=== PATIENT | male | born 1940 | race Two or more races ===

== ENCOUNTER 2021-08-28 17:01 | Inpatient (IN) | payer MEDICARE ==
[~2021-08-28] VITALS: Ht 172.7 cm; Wt 216.0 kg
[2021-08-28] VITALS (8 sets, daily range): BP systolic 134–166; BP diastolic 55–74
[~2021-08-28 17:01] MED LIST: AMIO200T36 PO; APIX5TAB3 PO; ATOR10TA87 PO; CLON0.2T PO; CYCL-1 PO; FURO40TA4 PO; ICOS1CAP PO; LEVO25TA7 PO; METO50TA7 PO; POTA-208 PO
[2021-08-28] MEDS ORDERED: normal saline 1000ML IV soln IV ONE (17:30)
[2021-08-28 18:32] LABS: BASOPHILS # (AUTO) 0.1 X10'3 (0-0.2); BASOPHILS % (AUTO) 1.5 % (0-1); EOSINOPHILS # (AUTO) 0.2 X10'3 (0-0.9); EOSINOPHILS % (AUTO) 3.1 % (0-6); LYMPHOCYTES # (AUTO) 1.1 X10'3 (1.1-4.8); LYMPHOCYTES % (AUTO) 16.2 % (21-51); MEAN CORPUSCULAR HEMOGLOBIN 19.9 PG (27.0-31.0); MEAN CORPUSCULAR HGB CONC 30.4 g/dL (33.0-36.5); MEAN CORPUSCULAR VOLUME 65.4 FL (78-98); MEAN PLATELET VOLUME 9.5 FL (7.4-10.4); MONOCYTES # (AUTO) 0.4 X10'3 (0-0.9); MONOCYTES % (AUTO) 6.3 % (2-12); NEUTROPHILS # (AUTO) 5.1 X10'3 (1.8-7.7); NEUTROPHILS % (AUTO) 72.9 % (42-75); PLATELET COUNT 224 X10'3 (140-440); RED BLOOD COUNT 3.04 X10'6 (4.70-6.10); RED CELL DISTRIBUTION WIDTH 19.6 % (11.5-14.5); WHITE BLOOD COUNT 6.9 X10'3 (4.5-11.0)
[2021-08-28 18:38] LABS: ALANINE AMINOTRANSFERASE 114 U/L (12-78); ALBUMIN 3.2 G/DL (3.4-5.0); ALBUMIN/GLOBULIN RATIO 0.8 (1.1-1.5); ALKALINE PHOSPHATASE 101 IU/L (46-116); ANION GAP 12 (8-16); ASPARTATE AMINO TRANSFERASE 116 U/L (10-37); BILIRUBIN,TOTAL 0.5 MG/DL (0.1-1.0); BLOOD UREA NITROGEN 48 MG/DL (7-18); BUN/CREATININE RATIO 19.9 (5.4-32.0); CALCIUM 8.3 MG/DL (8.5-10.1); CHLORIDE 104 MMOL/L (99-107); CREATININE 2.41 MG/DL (0.60-1.10); GLUCOSE 157 MG/DL (70-104); POTASSIUM 3.6 MMOL/L (3.5-5.1); SODIUM 140 MMOL/L (135-145); TOTAL PROTEIN 7.2 G/DL (6.4-8.2); eGFR 26 ML/MIN
[2021-08-28 18:41] LABS: HEMATOCRIT 19.9 % (42.0-52.0)
[2021-08-28] MEDS ORDERED: acetaminophen 325mg tablet PO PRN ×2 (20:20)
[2021-08-28] MEDS ORDERED: LORazepam 2 mg/ml vial IV PRN (20:20)
[2021-08-28] MEDS ORDERED: potassium Cl 20 mEq SR tablet PO PRN (20:20)
[2021-08-28] MEDS ORDERED: potassium Cl 40MEQ/1/2NS 520ml 520 ML IV PRN ×2 (20:20)
[2021-08-28] MEDS ORDERED: MESSAGE TO PHARMACY PO ONE (20:20)
[2021-08-28] MEDS ORDERED: glucagon, human recombinant 1mg kit SUBCUT PRN (20:20)
[2021-08-28] MEDS ORDERED: ondansetron/PF 4mg/2ml inj IV PRN (20:20)
[2021-08-28] MEDS ORDERED: dextrose ORAL solution 15 GM/59 ML bottle PO PRN ×2 (20:20)
[2021-08-28] MEDS ORDERED: magnesium 2GM in 50ml NS 50 ML IV PRN (20:20)
[2021-08-28] MEDS ORDERED: magnesium Cl slow-release 64mg tablet PO PRN (20:20)
[2021-08-28] MEDS ORDERED: LORazepam 1 MG tablet PO PRN (20:20)
[2021-08-28] MEDS ORDERED: insulin Lispro (HumaLOG) vial - multi-dose SQ SCH (20:20)
[2021-08-28] MEDS ORDERED: magnesium 4gm in 100ml NS 100 ML IV PRN (20:20)
[2021-08-28] MEDS ORDERED: dextrose 50%-water 50ml dispensing syringe IV PRN ×2 (20:20)
[2021-08-28] MEDS: normal saline 1000ml 1,000 ML IV SCH (20:20)
[2021-08-28 20:44] LABS: HEMOGLOBIN A1C 7.6 % (4.5-6.2)
[2021-08-28] MEDS ORDERED: pantoprazole 40MG/NS 100ML BAG 100 ML IV SCH (21:00)
[2021-08-28] MEDS: insulin glargine (Lantus) pen - multi-dose SQ SCH (21:00)
[2021-08-28] MEDS ORDERED: temazepam 15mg capsule PO PRN (21:00)
[2021-08-28] MEDS: pantoprazole 40 MG vial IV SCH (22:11)
--- NOTE | 2021-08-28 22:17 | NUR ---
NO AM BLOOD SUGAR YET. HELD DARIAN
[2021-08-28 22:24] LABS: % IRON SATURATION 5 % (11-46); IRON 25 UG/DL (53-167); TOTAL IRON BINDING CAPACITY 456 UG/DL (259-388)
[2021-08-28 23:04] LABS: CLARITY,URINE CLEAR (Clear); COLOR,URINE YELLOW (Yellow); GLUCOSE, URINE NEGATIVE (Neg); KETONES,URINE NEGATIVE (Neg); NITRITES, URINE NEGATIVE (Neg); OCCULT BLOOD,URINE NEGATIVE (Neg); PROTEIN,URINE NEGATIVE (Neg); UA COLLECTION TYPE URINAL
[2021-08-28 23:05] LABS: LEUKOCYTE ESTERASE ,URINE NEGATIVE (Neg)
[2021-08-28] MEDS ORDERED: ATOR20TA66 PO (23:08)
[2021-08-28] MEDS ORDERED: CHLO25TA10 PO (23:10)
[2021-08-28] MEDS ORDERED: OMEG-15 PO (23:14)
[2021-08-28] MEDS ORDERED: FURO40TA4 PO (23:16)
[2021-08-28] MEDS ORDERED: POTA10TA PO (23:19)
[2021-08-28] MEDS ORDERED: LOSA100T57 PO (23:24)
[2021-08-29] VITALS (11 sets, daily range): BP systolic 148–187; BP diastolic 56–81
[2021-08-29] MEDS ORDERED: ASPI-10 PO (00:01)
[2021-08-29] MEDS ORDERED: OMEP40CA21 PO (00:09)
[2021-08-29] MEDS ORDERED: TRAZ-251 PO (00:31)
[2021-08-29] MEDS ORDERED: INSU100I45 SQ (00:35)
[2021-08-29] MEDS ORDERED: INSU100I31 SQ (00:37)
[2021-08-29 00:57] LABS: MEAN CORPUSCULAR HEMOGLOBIN 21.9 PG (27.0-31.0); MEAN CORPUSCULAR VOLUME 70.7 FL (78-98); MEAN PLATELET VOLUME 8.9 FL (7.4-10.4); PLATELET COUNT 177 X10'3 (140-440); RED BLOOD COUNT 3.09 X10'6 (4.70-6.10); RED CELL DISTRIBUTION WIDTH 24.2 % (11.5-14.5); WHITE BLOOD COUNT 6.5 X10'3 (4.5-11.0)
[2021-08-29 01:04] LABS: HEMOGLOBIN 6.8 g/dl (14.0-17.9)
[2021-08-29 01:05] LABS: HEMATOCRIT 21.8 % (42.0-52.0)
[2021-08-29 01:17] LABS: ALANINE AMINOTRANSFERASE 92 U/L (12-78); ALBUMIN 2.5 G/DL (3.4-5.0); ALBUMIN/GLOBULIN RATIO 0.7 (1.1-1.5); ALKALINE PHOSPHATASE 81 IU/L (46-116); ANION GAP 11 (8-16); ASPARTATE AMINO TRANSFERASE 90 U/L (10-37); BILIRUBIN,TOTAL 0.8 MG/DL (0.1-1.0); BLOOD UREA NITROGEN 41 MG/DL (7-18); BUN/CREATININE RATIO 22.2 (5.4-32.0); CALCIUM 7.2 MG/DL (8.5-10.1); CHLORIDE 110 MMOL/L (99-107); CREATININE 1.85 MG/DL (0.60-1.10); GLUCOSE 69 MG/DL (70-104); MAGNESIUM 2.2 MG/DL (1.5-2.4); POTASSIUM 3.4 MMOL/L (3.5-5.1); SODIUM 143 MMOL/L (135-145); TOTAL CARBON DIOXIDE 22.4 MMOL/L (24-32); eGFR 35 ML/MIN
[2021-08-29] MEDS: normal saline 1000ml 1,000 ML IV SCH ×2 (05:20→16:20)
--- NOTE | 2021-08-29 06:42 | NUR ---
Patient in room PCU 3014. I have received report from ROSA MARIA River and had the opportunity to ask questions and assume patient care.
--- NOTE | 2021-08-29 07:29 | NUR ---
Diabetes consult: Noted A1C 7.6 which is appropriate for age, DM education not indicated at this time, will continue to monitor. Addendum: 08/29/21 at [address] Amended: Links added.
[2021-08-29] MEDS: K and/or MAG REPLACEMENT MC SCH ×2 (08:00→20:00)
[2021-08-29 09:03] LABS: HEMATOCRIT 24.2 % (42.0-52.0); HEMOGLOBIN 7.6 g/dl (14.0-17.9); MEAN CORPUSCULAR HEMOGLOBIN 22.1 PG (27.0-31.0); MEAN CORPUSCULAR HGB CONC 31.2 g/dL (33.0-36.5); MEAN CORPUSCULAR VOLUME 70.7 FL (78-98); MEAN PLATELET VOLUME 9.5 FL (7.4-10.4); PLATELET COUNT 206 X10'3 (140-440); RED BLOOD COUNT 3.42 X10'6 (4.70-6.10); RED CELL DISTRIBUTION WIDTH 23.3 % (11.5-14.5); WHITE BLOOD COUNT 7.7 X10'3 (4.5-11.0)
[2021-08-29] MEDS: pantoprazole 40 MG vial IV SCH ×2 (10:43→21:17)
[2021-08-29] MEDS: potassium Cl 20 mEq SR tablet PO PRN ×2 (10:43→21:17)
[2021-08-29] MEDS ORDERED: fentaNYL/PF 50MCG/1 ML 2ML syringe ONE (11:52)
[2021-08-29] MEDS ORDERED: MIDAZolam 1 MG/ML 5ML VIAL ONE (11:52)
[2021-08-29] MEDS ORDERED: LIDOcaine Viscous 15ml cup ONE (11:52)
[2021-08-29 17:49] LABS: HEMATOCRIT 24.7 % (42.0-52.0); HEMOGLOBIN 7.5 g/dl (14.0-17.9); MEAN CORPUSCULAR HEMOGLOBIN 21.6 PG (27.0-31.0); MEAN CORPUSCULAR HGB CONC 30.5 g/dL (33.0-36.5); MEAN CORPUSCULAR VOLUME 70.9 FL (78-98); PLATELET COUNT 209 X10'3 (140-440); RED BLOOD COUNT 3.49 X10'6 (4.70-6.10); RED CELL DISTRIBUTION WIDTH 23.7 % (11.5-14.5); WHITE BLOOD COUNT 7.7 X10'3 (4.5-11.0)
--- NOTE | 2021-08-29 18:35 | NUR ---
Problems reprioritized. Patient report given, questions answered & plan of care reviewed with ROSA MARIA Gomez. No signs of distress, all pt needs met at this time.
--- NOTE | 2021-08-29 18:40 | NUR ---
Patient in room PCU 3014. I have received report from ROSA MARIA He and had the opportunity to ask questions and assume patient care.
[2021-08-29] MEDS: insulin glargine (Lantus) pen - multi-dose SQ SCH (21:00)
[2021-08-29] MEDS: traZODone 50mg tablet PO SCH (21:16)
[2021-08-29] MEDS: cloNIDine 0.1 mg tablet PO SCH (21:21)
[2021-08-30] VITALS (9 sets, daily range): BP systolic 112–174; BP diastolic 50–94
[2021-08-30] MEDS: potassium Cl 20 mEq SR tablet PO PRN (00:56)
[2021-08-30] MEDS: normal saline 1000ml 1,000 ML IV SCH (02:34)
--- NOTE | 2021-08-30 06:03 | NUR ---
Problems reprioritized. Patient report given, questions answered & plan of care reviewed with ROSA MARIA He.
--- NOTE | 2021-08-30 06:24 | NUR ---
Patient in room PCU 3014. I have received report from ROSA MARIA Bolden and had the opportunity to ask questions and assume patient care.
[2021-08-30 06:57] LABS: HEMATOCRIT 23.3 % (42.0-52.0); HEMOGLOBIN 7.2 g/dl (14.0-17.9); MEAN CORPUSCULAR HEMOGLOBIN 21.9 PG (27.0-31.0); MEAN CORPUSCULAR HGB CONC 30.6 g/dL (33.0-36.5); MEAN CORPUSCULAR VOLUME 71.4 FL (78-98); MEAN PLATELET VOLUME 9.4 FL (7.4-10.4); PLATELET COUNT 196 X10'3 (140-440); RED BLOOD COUNT 3.27 X10'6 (4.70-6.10); RED CELL DISTRIBUTION WIDTH 23.8 % (11.5-14.5); WHITE BLOOD COUNT 7.1 X10'3 (4.5-11.0)
[2021-08-30 07:16] LABS: ALANINE AMINOTRANSFERASE 94 U/L (12-78); ALBUMIN 2.6 G/DL (3.4-5.0); ALBUMIN/GLOBULIN RATIO 0.7 (1.1-1.5); ALKALINE PHOSPHATASE 82 IU/L (46-116); ANION GAP 9 (8-16); ASPARTATE AMINO TRANSFERASE 81 U/L (10-37); BILIRUBIN,TOTAL 0.9 MG/DL (0.1-1.0); BLOOD UREA NITROGEN 28 MG/DL (7-18); CALCIUM 7.9 MG/DL (8.5-10.1); CHLORIDE 110 MMOL/L (99-107); CREATININE 1.65 MG/DL (0.60-1.10); GLUCOSE 182 MG/DL (70-104); MAGNESIUM 2.4 MG/DL (1.5-2.4); SODIUM 142 MMOL/L (135-145); TOTAL CARBON DIOXIDE 23.1 MMOL/L (24-32); TOTAL PROTEIN 6.2 G/DL (6.4-8.2); eGFR 40 ML/MIN
[2021-08-30] MEDS: K and/or MAG REPLACEMENT MC SCH ×2 (08:00→20:00)
[2021-08-30] MEDS: chlorthalidone 25mg tablet PO SCH (08:01)
[2021-08-30] MEDS: amiodarone 200mg tablet PO SCH (08:01)
[2021-08-30] MEDS: levoTHYROXINE 25mcg tablet PO SCH (08:01)
[2021-08-30] MEDS: atorvastatin 20mg tablet PO SCH (08:01)
[2021-08-30] MEDS: cloNIDine 0.1 mg tablet PO SCH ×3 (08:01→21:27)
[2021-08-30] MEDS: losartan 50mg tablet PO SCH (08:02)
[2021-08-30] MEDS: OMEGA-3/DHA/EPA/FISH OIL 1 EACH CAPSULE.DR PO SCH (08:02)
[2021-08-30] MEDS: pantoprazole 40 MG vial IV SCH ×2 (08:02→19:33)
--- NOTE | 2021-08-30 09:11 | NUR ---
Paged Dr Lacy PAGER ID: [phone] MESSAGE: Re Diego Rosario [phone] Can I order pt throat lozenges please? Thank you Ying [phone]
[2021-08-30] MEDS ORDERED: sodium bicarbonate (8.4%) inj. 150 MEQ in sodium chloride 0.45% 850 ML IV SCH (10:15)
[2021-08-30] MEDS: benzocaine/menthol oral lozeng 1 EACH BOX MM PRN ×4 (10:57→19:34)
[2021-08-30] MEDS: sodium bicarbonate (8.4%) inj. 150 MEQ in sodium chloride 0.45% 1,000 ML IV SCH ×2 (11:01→21:43)
[2021-08-30] MEDS: acetylcysteine 200 MG/ml 4ml vial PO SCH ×2 (11:02→19:34)
--- NOTE | 2021-08-30 12:19 | NUR ---
Paged Edilia Mayers NP, Paul [phone] Did Dr Waller want pt to eat lunch then be NPO, or NPO now? Thanks [phone]
[2021-08-30] MEDS ORDERED: ondansetron 4mg rapidly disintigrating tab PO PRN (15:55)
[2021-08-30 16:40] LABS: HEMOGLOBIN 8.3 g/dl (14.0-17.9); MEAN CORPUSCULAR HEMOGLOBIN 22.6 PG (27.0-31.0); MEAN CORPUSCULAR HGB CONC 30.6 g/dL (33.0-36.5); MEAN PLATELET VOLUME 9.5 FL (7.4-10.4); PLATELET COUNT 201 X10'3 (140-440); RED BLOOD COUNT 3.65 X10'6 (4.70-6.10); RED CELL DISTRIBUTION WIDTH 25.3 % (11.5-14.5); WHITE BLOOD COUNT 7.8 X10'3 (4.5-11.0)
--- NOTE | 2021-08-30 18:31 | NUR ---
Problems reprioritized. Patient report given, questions answered & plan of care reviewed with ROSA MARIA Tolentino. Pt sitting up on edge of bed, no signs of distress noted at change of shift. All pt needs met at this time. Informed NOC RN pt will go to pharmacy laboratory technician at 0630 on 08/31/21, needs an 18G to the R AC, and will be NPO at midnight.
[2021-08-30] MEDS: traZODone 50mg tablet PO SCH (21:22)
[2021-08-30] MEDS: insulin glargine (Lantus) pen - multi-dose SQ SCH (21:37)
[2021-08-31] VITALS (9 sets, daily range): BP systolic 135–171; BP diastolic 63–80
[2021-08-31] MEDS: benzocaine/menthol oral lozeng 1 EACH BOX MM PRN ×2 (03:04→08:39)
[2021-08-31] MEDS ORDERED: midazolam 1 mg/ML 2ml injection ONE (06:04)
[2021-08-31] MEDS ORDERED: fentaNYL/PF 50MCG/1 ML 2ML syringe ONE (06:04)
[2021-08-31] MEDS ORDERED: LIDOcaine 1% (10mg/ml)w/preservative injection 20ml MDV ONE (06:04)
[2021-08-31] MEDS ORDERED: heparin 1,000unit/ml 10ml vial 10 ML ONE (06:04)
[2021-08-31] MEDS ORDERED: nitroGLYCERIN-Tridil 50MG/D5W 250 ML IV ONE (06:04)
[2021-08-31] MEDS ORDERED: verapamil 2.5 mg/ml inj IV ONE (06:04)
[2021-08-31] MEDS ORDERED: iohexol 350MG/ML 100ml bottle IV ONE (06:05)
[2021-08-31] MEDS ORDERED: iohexol 350 MG/ML 50ML vial IV ONE (06:05)
--- NOTE | 2021-08-31 06:15 | NUR ---
Problems reprioritized. Patient report given, questions answered & plan of care reviewed with Ady CRANE. Addendum: 08/31/21 at 0615 by Randa Paul RN Amended: Links added.
[2021-08-31] MEDS ORDERED: furosemide 40mg tablet PO SCH (08:00)
[2021-08-31] MEDS: K and/or MAG REPLACEMENT MC SCH (08:00)
[2021-08-31] MEDS: levoTHYROXINE 25mcg tablet PO SCH (08:24)
[2021-08-31] MEDS: losartan 50mg tablet PO SCH (08:24)
[2021-08-31] MEDS: OMEGA-3/DHA/EPA/FISH OIL 1 EACH CAPSULE.DR PO SCH (08:25)
[2021-08-31] MEDS: cloNIDine 0.1 mg tablet PO SCH ×2 (08:26→13:31)
[2021-08-31] MEDS: atorvastatin 20mg tablet PO SCH (08:26)
[2021-08-31] MEDS: amiodarone 200mg tablet PO SCH (08:26)
[2021-08-31] MEDS: chlorthalidone 25mg tablet PO SCH (08:26)
[2021-08-31] MEDS: acetylcysteine 200 MG/ml 4ml vial PO SCH (08:28)
[2021-08-31] MEDS: pantoprazole 40 MG vial IV SCH (08:29)
[2021-08-31 10:44] LABS: ISTAT HGB ART 8.5 g/dl (14.0-18.0); ISTAT Hct ART 25 %PCV (42-52); ISTAT O2 SATURATION ARTERIAL 94 % (95-98); ISTAT SOURCE ART
[2021-08-31 11:19] LABS: HEMATOCRIT 24.9 % (42.0-52.0); HEMOGLOBIN 7.9 g/dl (14.0-17.9); MEAN CORPUSCULAR HEMOGLOBIN 22.9 PG (27.0-31.0); MEAN CORPUSCULAR HGB CONC 31.6 g/dL (33.0-36.5); MEAN CORPUSCULAR VOLUME 72.7 FL (78-98); MEAN PLATELET VOLUME 9.1 FL (7.4-10.4); PLATELET COUNT 184 X10'3 (140-440); RED BLOOD COUNT 3.43 X10'6 (4.70-6.10); RED CELL DISTRIBUTION WIDTH 25.5 % (11.5-14.5); WHITE BLOOD COUNT 7.1 X10'3 (4.5-11.0)
[2021-08-31 11:41] LABS: ALANINE AMINOTRANSFERASE 71 U/L (12-78); ALBUMIN 2.6 G/DL (3.4-5.0); ALBUMIN/GLOBULIN RATIO 0.7 (1.1-1.5); ALKALINE PHOSPHATASE 84 IU/L (46-116); ANION GAP 7 (8-16); ASPARTATE AMINO TRANSFERASE 44 U/L (10-37); BLOOD UREA NITROGEN 25 MG/DL (7-18); CALCIUM 7.9 MG/DL (8.5-10.1); CHLORIDE 106 MMOL/L (99-107); CREATININE 1.56 MG/DL (0.60-1.10); GLUCOSE 142 MG/DL (70-104); MAGNESIUM 2.1 MG/DL (1.5-2.4); POTASSIUM 3.6 MMOL/L (3.5-5.1); SODIUM 142 MMOL/L (135-145); TOTAL CARBON DIOXIDE 28.7 MMOL/L (24-32); TOTAL PROTEIN 6.2 G/DL (6.4-8.2); eGFR 43 ML/MIN
[2021-08-31] MEDS ORDERED: IRON150C5 PO (13:02)
--- NOTE | 2021-08-31 15:10 | NUR ---
PT IS STABLE FOR DISCHARGE PER MD ORDERS. ALL DISCHARGE INSTRUCTIONS REVIEWED WITH PATIENT AND ALL QUESTIONS ANSWERED. PT WILL MAKE OWN FOLLOW UP APPOINTMENT WITH PCP. NEW RX E-SCRIPTED TO PHARMACY. PIV DISCONTINUED, CANNULA INTACT. FAIRING MAN DISCONTINUED. ALL BELONGINGS GATHERED AND SENT WITH PATIENT. PT WAS WHEELED TO FRONT OF LOBBY WHERE PRIVATE VEHICLE WAS WAITING.
[2021-09-03 06:46] LABS: ISTAT Hct MIX 27 %PCV (42-52); ISTAT O2 SATURATION MIX VENOUS 56 % (60-80); ISTAT SOURCE VEN
== END 2021-08-31 15:32 | disposition home or self-care (01) | DRG 812 ==
LOC: ER 17:02 → ED HOLD 20:28 → PCU 3S 08-29 01:35
PROVIDERS: ADMIT Internal Medicine; ATTEND Family Medicine
PROC: 30233N1 Transfusion of Nonautologous Red Blood Cells into Peripheral Vein, Percutaneous Approach (ICD-10-PCS; principal; 2021-08-28)
PROC: 0DJ08ZZ Inspection of Upper Intestinal Tract, Via Natural or Artificial Opening Endoscopic (ICD-10-PCS; 2021-08-29)
PROC: 4A023N8 Measurement of Cardiac Sampling and Pressure, Bilateral, Percutaneous Approach (ICD-10-PCS; 2021-08-31)
PROC: B2111ZZ Fluoroscopy of Multiple Coronary Arteries using Low Osmolar Contrast (ICD-10-PCS; 2021-08-31)
PROC: B2151ZZ Fluoroscopy of Left Heart using Low Osmolar Contrast (ICD-10-PCS; 2021-08-31)
DX: D50.9 Iron deficiency anemia, unspecified (principal); I13.0 Hypertensive heart and chronic kidney disease with heart failure and stage 1 through stage 4 chronic kidney disease, or unspecified chronic kidney disease; N18.4 Chronic kidney disease, stage 4 (severe); I48.20 Chronic atrial fibrillation, unspecified; Z68.45 Body mass index [BMI] 70 or greater, adult; I50.32 Chronic diastolic (congestive) heart failure; N17.9 Acute kidney failure, unspecified; E11.22 Type 2 diabetes mellitus with diabetic chronic kidney disease; E03.9 Hypothyroidism, unspecified; E66.9 Obesity, unspecified; E78.5 Hyperlipidemia, unspecified; Z77.090 Contact with and (suspected) exposure to asbestos; F41.9 Anxiety disorder, unspecified; R74.01 Elevation of levels of liver transaminase levels; G47.33 Obstructive sleep apnea (adult) (pediatric); G89.29 Other chronic pain; M54.9 Dorsalgia, unspecified; I25.10 Atherosclerotic heart disease of native coronary artery without angina pectoris; I27.20 Pulmonary hypertension, unspecified; K29.80 Duodenitis without bleeding; Z79.4 Long term (current) use of insulin; Z79.82 Long term (current) use of aspirin; Z79.899 Other long term (current) drug therapy; Z90.49 Acquired absence of other specified parts of digestive tract; Z79.01 Long term (current) use of anticoagulants; Z72.89 Other problems related to lifestyle
CPT/HCPCS: 36415; 36430; 43235; 71045; 76937; 80048; 80053; 81003; 82803; 82948; 83036; 83520; 83540; 83550; 83735; 84443; 85008; 85014; 85025; 85027; 85610; 85730; 86885; 86900; 86901; 86920; 87081; 93005; 93460; 97110; 97161; 97530; 99152; 99153; 99285; A4620; A6258; C1751; C1769; C1894; C9113; G0378; J1644; J1815; J1940; J2001; J2250; J3010; J3490; J7030; J7040; P9016; Q9967

== ENCOUNTER 2023-05-23 07:01 | Outpatient (CLI) | payer MEDICARE ==
[~2023-05-23] VITALS: Ht 167.6 cm; Wt 99.8 kg
[~2023-05-23 07:01] MED LIST changes: -APIX5TAB3 PO; +ASPI-10 PO; -ATOR10TA87 PO; +ATOR20TA66 PO; +CHLO25TA10 PO; -CYCL-1 PO; -ICOS1CAP PO; +INSU100I31 SQ; +IRON150C5 PO; +LOSA100T58 PO; -METO50TA7 PO; +OMEG-15 PO; +OMEP40CA21 PO; -POTA-208 PO; +POTA-218 PO; +TRAZ-251 PO
[2023-05-23] MEDS ORDERED: albuterol 2.5 MG/3 ML nebule NEB ONE (07:50)
== END 2023-05-23 23:59 | disposition home or self-care (01) ==
LOC: RT 07:01
PROVIDERS: ATTEND Internal Medicine Cardiovascular Disease
DX: R94.2 Abnormal results of pulmonary function studies (principal); Z79.899 Other long term (current) drug therapy
CPT/HCPCS: 85018; 94010; 94727; 94729

== ENCOUNTER 2023-05-26 21:22 | Emergency (ER) | payer MEDICARE ==
[~2023-05-26] VITALS: Ht 172.7 cm; Wt 100.0 kg
[2023-05-26 22:34] VITALS: TEMP 98.1
[2023-05-27] MEDS ORDERED: TETanus/Pertussis (Acell)/Diphther VAC/PF (Tdap-Adult) 0.5ml syringe IMVAC ONE (00:05)
[2023-05-27] MEDS ORDERED: bacitracin 15gm ointment TP ONE (00:05)
[2023-05-27] MEDS ORDERED: LIDOCAINE 2%/EPI 1:100,000 inj. Multi-dose 20 ML VIAL IJ ONE (00:10)
[2023-05-27] MEDS ORDERED: cephalexin 250mg capsule PO ONE (01:00)
[2023-05-27] MEDS ORDERED: CEPH250T PO (01:01)
[2023-05-27] MEDS ORDERED: cloNIDine 0.1 mg tablet PO ONE ×2 (01:25→01:30)
[2023-05-27] MEDS ORDERED: cloNIDine 0.1 mg tablet PO SCH (01:30)
[2023-05-27 01:45] VITALS: BP 221/99; PULSE 79; RESP 15; O2SAT 96
== END 2023-05-27 02:21 | disposition home or self-care (01) ==
LOC: ER 21:23
DX: S63.257A Unspecified dislocation of left little finger, initial encounter (principal); S01.112A Laceration without foreign body of left eyelid and periocular area, initial encounter; I11.0 Hypertensive heart disease with heart failure; F41.9 Anxiety disorder, unspecified; E11.9 Type 2 diabetes mellitus without complications; Z90.49 Acquired absence of other specified parts of digestive tract; Z98.890 Other specified postprocedural states; W19.XXXA Unspecified fall, initial encounter; Y93.89 Activity, other specified; Y92.89 Other specified places as the place of occurrence of the external cause; Y99.8 Other external cause status
CPT/HCPCS: 12013; 26770; 70450; 73130; 90471; 90715; 99285; A6449

== ENCOUNTER 2023-11-29 02:32 | Emergency (ER) | payer MEDICARE ==
[~2023-11-29] VITALS: Ht 182.9 cm; Wt 110.0 kg
[2023-11-29 03:41] LABS: BASOPHILS % (AUTO) 0.4 % (0-1); EOSINOPHILS # (AUTO) 0.1 X10'3 (0-0.9); EOSINOPHILS % (AUTO) 0.7 % (0-6); HEMATOCRIT 37.7 % (42.0-52.0); HEMOGLOBIN 12.6 g/dl (14.0-17.9); LYMPHOCYTES # (AUTO) 0.7 X10'3 (1.1-4.8); LYMPHOCYTES % (AUTO) 7.3 % (21-51); MEAN CORPUSCULAR HEMOGLOBIN 30.2 PG (27.0-31.0); MEAN CORPUSCULAR HGB CONC 33.4 g/dL (33.0-36.5); MEAN CORPUSCULAR VOLUME 90.3 FL (78-98); MEAN PLATELET VOLUME 9.7 FL (7.4-10.4); MONOCYTES # (AUTO) 0.6 X10'3 (0-0.9); MONOCYTES % (AUTO) 6.4 % (2-12); NEUTROPHILS # (AUTO) 8.2 X10'3 (1.8-7.7); NEUTROPHILS % (AUTO) 85.2 % (42-75); PLATELET COUNT 170 X10'3 (140-440); RED BLOOD COUNT 4.18 X10'6 (4.70-6.10); RED CELL DISTRIBUTION WIDTH 14.6 % (11.5-14.5); WHITE BLOOD COUNT 9.7 X10'3 (4.5-11.0)
[2023-11-29] MEDS: normal saline 1000ML IV soln IVB ONE (03:48)
[2023-11-29 03:58] LABS: ALBUMIN 3.1 G/DL (3.4-5.0); ANION GAP 12 (8-16); BLOOD UREA NITROGEN 30 MG/DL (7-18); BUN/CREATININE RATIO 14.4 (10.0-20.0); CALCIUM 8.6 MG/DL (8.5-10.1); CHLORIDE 104 MMOL/L (99-107); CREATININE 2.09 MG/DL (0.60-1.10); GLUCOSE 101 MG/DL (70-104); POTASSIUM 4.3 MMOL/L (3.5-5.1); SODIUM 140 MMOL/L (135-145); TOTAL CARBON DIOXIDE 24.5 MMOL/L (24-32); eCRCL 29 ML/MIN; eGFR 30 ML/MIN
[2023-11-29 07:58] VITALS: BP 150/67; PULSE 63; RESP 18; TEMP 98.6; O2SAT 99
== END 2023-11-29 08:02 | disposition home or self-care (01) ==
LOC: ER 02:33
DX: E11.649 Type 2 diabetes mellitus with hypoglycemia without coma (principal); I50.9 Heart failure, unspecified; I11.0 Hypertensive heart disease with heart failure; Z79.899 Other long term (current) drug therapy; Z79.82 Long term (current) use of aspirin; Z79.84 Long term (current) use of oral hypoglycemic drugs; Z90.49 Acquired absence of other specified parts of digestive tract
CPT/HCPCS: 36415; 70450; 71045; 80048; 82948; 84484; 85025; 93005; 96360; 99285; A6222; J7030; A6449

== ENCOUNTER 2024-02-08 17:10 | Inpatient (IN) | payer MEDICARE ==
[~2024-02-08] VITALS: Ht 175.3 cm; Wt 106.0 kg
[2024-02-08 19:04] LABS: BASOPHILS % (AUTO) 0.4 % (0-1); EOSINOPHILS # (AUTO) 0.1 X10'3 (0-0.9); EOSINOPHILS % (AUTO) 0.7 % (0-6); HEMATOCRIT 38.5 % (42.0-52.0); HEMOGLOBIN 12.8 g/dl (14.0-17.9); LYMPHOCYTES # (AUTO) 1.3 X10'3 (1.1-4.8); MEAN CORPUSCULAR HEMOGLOBIN 29.5 PG (27.0-31.0); MEAN CORPUSCULAR HGB CONC 33.3 g/dL (33.0-36.5); MEAN CORPUSCULAR VOLUME 88.6 FL (78-98); MEAN PLATELET VOLUME 10.5 FL (7.4-10.4); MONOCYTES # (AUTO) 0.7 X10'3 (0-0.9); MONOCYTES % (AUTO) 8.4 % (2-12); NEUTROPHILS % (AUTO) 74.5 % (42-75); PLATELET COUNT 239 X10'3 (140-440); RED BLOOD COUNT 4.35 X10'6 (4.70-6.10); RED CELL DISTRIBUTION WIDTH 15.4 % (11.5-14.5); WHITE BLOOD COUNT 8.1 X10'3 (4.5-11.0)
[2024-02-08] MEDS: hydrALAZINE 20mg/ml inj. IV ONE (19:24)
[2024-02-08 19:42] LABS: ALANINE AMINOTRANSFERASE 32 U/L (12-78); ALBUMIN 2.6 G/DL (3.4-5.0); ALBUMIN/GLOBULIN RATIO 0.6 (1.1-1.5); ALKALINE PHOSPHATASE 101 IU/L (46-116); ANION GAP 9 (8-16); ASPARTATE AMINO TRANSFERASE 29 U/L (10-37); BILIRUBIN,TOTAL 0.3 MG/DL (0.1-1.0); BLOOD UREA NITROGEN 62 MG/DL (7-18); CALCIUM 9.1 MG/DL (8.5-10.1); CHLORIDE 105 MMOL/L (99-107); GLUCOSE 144 MG/DL (70-104); POTASSIUM 5.5 MMOL/L (3.5-5.1); SODIUM 137 MMOL/L (135-145); eCRCL 20 ML/MIN; eGFR 23 ML/MIN
[2024-02-08 19:51] LABS: MAGNESIUM 2.4 MG/DL (1.5-2.4); PRO BRAIN NATRIURETIC PEPTIDE 2147 PG/ML (0-450)
[2024-02-08] MEDS: furosemide 10 MG/1 ML 10ml inj IV ONE (19:52)
[2024-02-08] MEDS ORDERED: mag hydrox/Alum hydrox/simeth 30ml oral suspension PO PRN (20:50)
[2024-02-08] MEDS ORDERED: magnesium hydroxide 30ml (MOM) UD suspension PO PRN (20:50)
[2024-02-08] MEDS ORDERED: magnesium 2GM in 50ml NS 50 ML IV PRN (20:50)
[2024-02-08] MEDS ORDERED: magnesium Cl slow-release 64mg tablet PO PRN (20:50)
[2024-02-08] MEDS ORDERED: DEXTROSE 15 GM of carb/4 tabs (each vial/BOTTLE has 4 tablets) PO PRN ×2 (20:50)
[2024-02-08] MEDS ORDERED: potassium Cl 40MEQ/1/2NS 520ml 520 ML IV PRN (20:50)
[2024-02-08] MEDS ORDERED: ondansetron/PF 4mg/2ml inj IV PRN (20:50)
[2024-02-08] MEDS ORDERED: glucagon, human recombinant 1mg kit SUBCUT PRN (20:50)
[2024-02-08] MEDS ORDERED: dextrose 50%-water 50ml dispensing syringe IV PRN ×2 (20:50)
[2024-02-08] MEDS ORDERED: acetaminophen 325mg tablet PO PRN (20:50)
[2024-02-08] MEDS ORDERED: magnesium 4gm in 100ml NS 100 ML IV PRN (20:50)
[2024-02-08] MEDS ORDERED: potassium Cl 20 mEq SR tablet PO PRN ×2 (20:50)
[2024-02-08] MEDS: insulin glargine (Lantus) pen - multi-dose SQ SCH (21:00)
[2024-02-08 22:30] VITALS: BP 177/76; PULSE 86; RESP 22; TEMP 96.8; O2SAT 95
[2024-02-08] MEDS ORDERED: ipratropium/albuterol 3ml nebule NEB PRN (22:30)
[2024-02-08] MEDS: LidoCAINE 2% Topical Jelly 11mL syringe (UROJET) TOP ONE (22:54)
[2024-02-08] MEDS: insulin glargine (Lantus) pen - multi-dose SQ ONE (22:54)
[2024-02-08 23:04] VITALS: PULSE 71; RESP 28; O2SAT 94
[2024-02-08] MEDS ORDERED: FURO40TA4 PO ×2 (23:16)
[2024-02-08] MEDS ORDERED: APIX5TAB3 PO (23:16)
[2024-02-08] MEDS ORDERED: CARSR60C PO (23:16)
[2024-02-08] MEDS ORDERED: MULT-1074 PO (23:16)
[2024-02-09] VITALS (16 sets, daily range): BP systolic 143–174; BP diastolic 76–90; PULSE 65–98; RESP 16–25; TEMP 95.3–98.1; O2SAT 89–98
[2024-02-09] MEDS: HYDROmorphone inj. 0.5 MG/0.5 ML DISP.SYRIN IV PRN (00:52)
[2024-02-09 06:47] LABS: ALANINE AMINOTRANSFERASE 27 U/L (12-78); ALBUMIN 2.4 G/DL (3.4-5.0); ALBUMIN/GLOBULIN RATIO 0.5 (1.1-1.5); ALKALINE PHOSPHATASE 91 IU/L (46-116); ANION GAP 11 (8-16); ASPARTATE AMINO TRANSFERASE 25 U/L (10-37); BILIRUBIN,TOTAL 0.3 MG/DL (0.1-1.0); BLOOD UREA NITROGEN 58 MG/DL (7-18); BUN/CREATININE RATIO 22.2 (10.0-20.0); CALCIUM 8.9 MG/DL (8.5-10.1); CHLORIDE 106 MMOL/L (99-107); CREATININE 2.61 MG/DL (0.60-1.10); GLUCOSE 113 MG/DL (70-104); MAGNESIUM 2.3 MG/DL (1.5-2.4); PHOSPHORUS 3.8 MG/DL (2.3-4.5); POTASSIUM 4.5 MMOL/L (3.5-5.1); SODIUM 139 MMOL/L (135-145); TOTAL PROTEIN 6.8 G/DL (6.4-8.2); eCRCL 21 ML/MIN; eGFR 24 ML/MIN
[2024-02-09 06:55] LABS: D-DIMER 2.34 MG/L FEU (0-0.50)
[2024-02-09 06:57] LABS: BASOPHILS % (AUTO) 0.4 % (0-1); EOSINOPHILS % (AUTO) 0.3 % (0-6); HEMATOCRIT 37.4 % (42.0-52.0); HEMOGLOBIN 12.4 g/dl (14.0-17.9); LYMPHOCYTES % (AUTO) 14.7 % (21-51); MEAN CORPUSCULAR HGB CONC 33.1 g/dL (33.0-36.5); MEAN CORPUSCULAR VOLUME 87.6 FL (78-98); MEAN PLATELET VOLUME 10.3 FL (7.4-10.4); MONOCYTES # (AUTO) 0.7 X10'3 (0-0.9); MONOCYTES % (AUTO) 10.5 % (2-12); NEUTROPHILS # (AUTO) 4.9 X10'3 (1.8-7.7); NEUTROPHILS % (AUTO) 74.1 % (42-75); PLATELET COUNT 216 X10'3 (140-440); RED BLOOD COUNT 4.27 X10'6 (4.70-6.10); RED CELL DISTRIBUTION WIDTH 15.3 % (11.5-14.5); WHITE BLOOD COUNT 6.6 X10'3 (4.5-11.0)
[2024-02-09] MEDS: LIDOcaine 5% patch TP SCH (08:00)
[2024-02-09] MEDS: K and/or MAG REPLACEMENT MC SCH (08:00)
[2024-02-09] MEDS ORDERED: furosemide 10 MG/1 ML 10ml inj IV SCH (08:00)
[2024-02-09] MEDS: atorvastatin 20mg tablet PO SCH (09:42)
[2024-02-09] MEDS: apixaban 2.5mg tablet PO SCH (09:42)
[2024-02-09] MEDS: losartan 50mg tablet PO SCH (09:43)
[2024-02-09] MEDS: docusate sod 100mg capsule PO SCH (09:44)
[2024-02-09] MEDS: pantoprazole 40mg Tablet.DR PO SCH (09:44)
[2024-02-09] MEDS: cloNIDine 0.1 mg tablet PO SCH (09:44)
[2024-02-09] MEDS: amiodarone 200mg tablet PO SCH (09:44)
[2024-02-09] MEDS: furosemide 10 MG/1 ML 10ml inj IV SCH (09:45)
[2024-02-09] MEDS: furosemide 20 MG/2 ML vial IV ONE (09:45)
[2024-02-09] MEDS: levoTHYROXINE 75mcg tablet PO SCH (09:45)
[2024-02-09] MEDS: NIFEdipine XL 30mg tablet PO SCH (09:47)
[2024-02-09] MEDS: ipratropium/albuterol 3ml nebule NEB SCH (13:34)
[2024-02-09] MEDS: methylPREDNISolone sod succ 125mg/2ml vial IV ONE (14:05)
[2024-02-09] MEDS: furosemide 40mg/4ml inj IV SCH (14:05)
[2024-02-09] MEDS ORDERED: ondansetron 4mg rapidly disintigrating tab PO PRN (15:55)
[2024-02-09] MEDS: traZODone 50mg tablet PO SCH (20:37)
[2024-02-09] MEDS: methylPREDNISolone sod succ 125mg/2ml vial IV SCH (20:43)
[2024-02-10] VITALS (33 sets, daily range): BP systolic 96–174; BP diastolic 52–83; PULSE 65–120; RESP 13–25; TEMP 97–98.4; O2SAT 90–100
[2024-02-10 06:41] LABS: BASOPHILS % (AUTO) 0.1 % (0-1); EOSINOPHILS % (AUTO) 0 % (0-6); HEMATOCRIT 37.4 % (42.0-52.0); HEMOGLOBIN 12.3 g/dl (14.0-17.9); LYMPHOCYTES # (AUTO) 0.3 X10'3 (1.1-4.8); LYMPHOCYTES % (AUTO) 6.8 % (21-51); MEAN CORPUSCULAR HEMOGLOBIN 28.9 PG (27.0-31.0); MEAN CORPUSCULAR HGB CONC 32.9 g/dL (33.0-36.5); MEAN CORPUSCULAR VOLUME 87.8 FL (78-98); MONOCYTES # (AUTO) 0.1 X10'3 (0-0.9); MONOCYTES % (AUTO) 1.6 % (2-12); NEUTROPHILS # (AUTO) 4.4 X10'3 (1.8-7.7); NEUTROPHILS % (AUTO) 91.5 % (42-75); PLATELET COUNT 202 X10'3 (140-440); RED BLOOD COUNT 4.26 X10'6 (4.70-6.10); RED CELL DISTRIBUTION WIDTH 14.8 % (11.5-14.5); WHITE BLOOD COUNT 4.9 X10'3 (4.5-11.0)
[2024-02-10 07:07] LABS: ALANINE AMINOTRANSFERASE 24 U/L (12-78); ALBUMIN 2.1 G/DL (3.4-5.0); ALBUMIN/GLOBULIN RATIO 0.5 (1.1-1.5); ALKALINE PHOSPHATASE 81 IU/L (46-116); ANION GAP 13 (8-16); ASPARTATE AMINO TRANSFERASE 19 U/L (10-37); BILIRUBIN,TOTAL 0.3 MG/DL (0.1-1.0); BLOOD UREA NITROGEN 57 MG/DL (7-18); BUN/CREATININE RATIO 21.6 (10.0-20.0); CALCIUM 8.3 MG/DL (8.5-10.1); CHLORIDE 105 MMOL/L (99-107); CREATININE 2.64 MG/DL (0.60-1.10); GLUCOSE 173 MG/DL (70-104); MAGNESIUM 2.1 MG/DL (1.5-2.4); PHOSPHORUS 4.5 MG/DL (2.3-4.5); POTASSIUM 4.1 MMOL/L (3.5-5.1); PRO BRAIN NATRIURETIC PEPTIDE 3758 PG/ML (0-450); SODIUM 140 MMOL/L (135-145); TOTAL CARBON DIOXIDE 22.4 MMOL/L (24-32); TOTAL PROTEIN 6.3 G/DL (6.4-8.2); eCRCL 21 ML/MIN; eGFR 23 ML/MIN
[2024-02-10] MEDS: carvedilol 6.25mg tablet PO SCH (09:45)
[2024-02-10] MEDS: amiodarone 150mg/dext, iso-os 100 ML IV ONE ×2 (16:01→16:06)
[2024-02-10] MEDS: morphine 10mg/ml inj. IV ONE (16:03)
[2024-02-10] MEDS: MIDAZolam 1mg/ml 10ml vial IV ONE (16:05)
[2024-02-10] MEDS: furosemide 40mg/4ml inj IV SCH (19:40)
[2024-02-11] VITALS (14 sets, daily range): BP systolic 109–149; BP diastolic 62–73; PULSE 61–76; RESP 13–24; TEMP 97–97.8; O2SAT 90–97
[2024-02-11 07:52] LABS: BASOPHILS % (AUTO) 0 % (0-1); EOSINOPHILS % (AUTO) 0 % (0-6); HEMATOCRIT 36.2 % (42.0-52.0); HEMOGLOBIN 11.7 g/dl (14.0-17.9); LYMPHOCYTES # (AUTO) 0.4 X10'3 (1.1-4.8); LYMPHOCYTES % (AUTO) 4.4 % (21-51); MEAN CORPUSCULAR HEMOGLOBIN 28.9 PG (27.0-31.0); MEAN CORPUSCULAR HGB CONC 32.3 g/dL (33.0-36.5); MEAN CORPUSCULAR VOLUME 89.6 FL (78-98); MEAN PLATELET VOLUME 9.6 FL (7.4-10.4); MONOCYTES # (AUTO) 0.4 X10'3 (0-0.9); MONOCYTES % (AUTO) 4.3 % (2-12); NEUTROPHILS # (AUTO) 7.8 X10'3 (1.8-7.7); NEUTROPHILS % (AUTO) 91.3 % (42-75); PLATELET COUNT 187 X10'3 (140-440); RED BLOOD COUNT 4.04 X10'6 (4.70-6.10); RED CELL DISTRIBUTION WIDTH 15.6 % (11.5-14.5); WHITE BLOOD COUNT 8.5 X10'3 (4.5-11.0)
[2024-02-11 08:50] LABS: ALANINE AMINOTRANSFERASE 19 U/L (12-78); ALBUMIN 2.1 G/DL (3.4-5.0); ALBUMIN/GLOBULIN RATIO 0.5 (1.1-1.5); ALKALINE PHOSPHATASE 73 IU/L (46-116); ANION GAP 8 (8-16); ASPARTATE AMINO TRANSFERASE 15 U/L (10-37); BILIRUBIN,TOTAL 0.4 MG/DL (0.1-1.0); BLOOD UREA NITROGEN 71 MG/DL (7-18); CALCIUM 7.9 MG/DL (8.5-10.1); CHLORIDE 106 MMOL/L (99-107); CREATININE 2.73 MG/DL (0.60-1.10); GLUCOSE 205 MG/DL (70-104); MAGNESIUM 2.4 MG/DL (1.5-2.4); PHOSPHORUS 4.2 MG/DL (2.3-4.5); POTASSIUM 4.4 MMOL/L (3.5-5.1); PRO BRAIN NATRIURETIC PEPTIDE 4981 PG/ML (0-450); SODIUM 139 MMOL/L (135-145); TOTAL CARBON DIOXIDE 24.9 MMOL/L (24-32); TOTAL PROTEIN 6.1 G/DL (6.4-8.2); eCRCL 20 ML/MIN; eGFR 22 ML/MIN
== END 2024-02-11 16:45 | DRG 291 ==
LOC: ER 17:10 → ED HOLD 20:50 → SUR 3N 22:00 → PCU 3S 02-10 11:50
PROVIDERS: ADMIT Internal Medicine; ATTEND Family Medicine
PROC: 5A09357 Assistance with Respiratory Ventilation, Less than 24 Consecutive Hours, Continuous Positive Airway Pressure (ICD-10-PCS; principal; 2024-02-09)
PROC: 5A09357 Assistance with Respiratory Ventilation, Less than 24 Consecutive Hours, Continuous Positive Airway Pressure (ICD-10-PCS; 2024-02-10)
PROC: 5A09357 Assistance with Respiratory Ventilation, Less than 24 Consecutive Hours, Continuous Positive Airway Pressure (ICD-10-PCS; 2024-02-11)
DX: I13.0 Hypertensive heart and chronic kidney disease with heart failure and stage 1 through stage 4 chronic kidney disease, or unspecified chronic kidney disease (principal); I50.33 Acute on chronic diastolic (congestive) heart failure; J96.01 Acute respiratory failure with hypoxia; N18.4 Chronic kidney disease, stage 4 (severe); N17.9 Acute kidney failure, unspecified; I27.20 Pulmonary hypertension, unspecified; I48.0 Paroxysmal atrial fibrillation; F41.9 Anxiety disorder, unspecified; E03.9 Hypothyroidism, unspecified; I25.10 Atherosclerotic heart disease of native coronary artery without angina pectoris; E87.5 Hyperkalemia; G47.33 Obstructive sleep apnea (adult) (pediatric); E78.5 Hyperlipidemia, unspecified; D63.8 Anemia in other chronic diseases classified elsewhere; E11.22 Type 2 diabetes mellitus with diabetic chronic kidney disease; N40.1 Benign prostatic hyperplasia with lower urinary tract symptoms; R35.0 Frequency of micturition; I49.5 Sick sinus syndrome; Z79.82 Long term (current) use of aspirin; Z79.899 Other long term (current) drug therapy; Z79.4 Long term (current) use of insulin; Z90.49 Acquired absence of other specified parts of digestive tract; Z79.84 Long term (current) use of oral hypoglycemic drugs
CPT/HCPCS: 36415; 71045; 80053; 82948; 83036; 83735; 83880; 84100; 84145; 84484; 85025; 85379; 87081; 93005; 93306; 94640; 94660; 94760; 97110; 97161; 97530; 99285; A4314; A4333; A4615; A4620; A6590; A7015; G0378; J0282; J0360; J1170; J1815; J1940; J2250; J2274; J2930; J7030

== ENCOUNTER 2024-03-02 18:16 | Emergency (ER) | payer MEDICARE ==
[~2024-03-02] VITALS: Ht 172.7 cm; Wt 168.0 kg
[~2024-03-02 18:16] MED LIST changes: -ASPI-10 PO; +CARV-49 PO; -CHLO25TA10 PO; +MULT-1074 PO; -OMEP40CA21 PO; +PRED5TAB PO; +RIVA15TA PO
[2024-03-02 19:18] VITALS: RESP 12
[2024-03-02 19:29] VITALS: TEMP 98.1
[2024-03-02 19:42] LABS: BASOPHILS # (AUTO) 0.1 X10'3 (0-0.2); BASOPHILS % (AUTO) 0.7 % (0-1); EOSINOPHILS # (AUTO) 0.1 X10'3 (0-0.9); EOSINOPHILS % (AUTO) 0.5 % (0-6); HEMATOCRIT 46.6 % (42.0-52.0); HEMOGLOBIN 15.7 g/dl (14.0-17.9); LYMPHOCYTES # (AUTO) 1.6 X10'3 (1.1-4.8); LYMPHOCYTES % (AUTO) 14.5 % (21-51); MEAN CORPUSCULAR HEMOGLOBIN 28.5 PG (27.0-31.0); MEAN CORPUSCULAR HGB CONC 33.8 g/dL (33.0-36.5); MEAN CORPUSCULAR VOLUME 84.3 FL (78-98); MEAN PLATELET VOLUME 9.2 FL (7.4-10.4); MONOCYTES # (AUTO) 0.6 X10'3 (0-0.9); MONOCYTES % (AUTO) 5.9 % (2-12); NEUTROPHILS # (AUTO) 8.5 X10'3 (1.8-7.7); NEUTROPHILS % (AUTO) 78.4 % (42-75); PLATELET COUNT 196 X10'3 (140-440); RED BLOOD COUNT 5.53 X10'6 (4.70-6.10); RED CELL DISTRIBUTION WIDTH 14.9 % (11.5-14.5); WHITE BLOOD COUNT 10.8 X10'3 (4.5-11.0)
[2024-03-02 19:51] LABS: ALBUMIN 2.4 G/DL (3.4-5.0); ANION GAP 4 (8-16); BLOOD UREA NITROGEN 69 MG/DL (7-18); BUN/CREATININE RATIO 21.8 (10.0-20.0); CALCIUM 8.6 MG/DL (8.5-10.1); CHLORIDE 93 MMOL/L (99-107); CREATININE 3.16 MG/DL (0.60-1.10); GLUCOSE 147 MG/DL (70-104); POTASSIUM 3.5 MMOL/L (3.5-5.1); SODIUM 134 MMOL/L (135-145); TOTAL CARBON DIOXIDE 37.2 MMOL/L (24-32); eCRCL 17 ML/MIN; eGFR 19 ML/MIN
[2024-03-02] MEDS: normal saline 1000ML IV soln IVB ONE (21:22)
[2024-03-02] MEDS ORDERED: FLO0.4C PO (23:38)
[2024-03-02 23:46] LABS: BILIRUBIN,URINE NEGATIVE (Neg); CLARITY,URINE SLIGHTLY CLOUDY (Clear); COLOR,URINE YELLOW (Yellow); GLUCOSE, URINE 500 mg/dl (Neg); KETONES,URINE NEGATIVE (Neg); LEUKOCYTE ESTERASE ,URINE NEGATIVE (Neg); NITRITES, URINE NEGATIVE (Neg); OCCULT BLOOD,URINE NEGATIVE (Neg); PROTEIN,URINE 100 mg/dl (Neg); UROBILINOGEN,URINE 0.2 E.U/dL (0.2-1.0)
[2024-03-02] MEDS: LidoCAINE 2% Topical Jelly 11mL syringe (UROJET) TOP ONE (23:51)
[2024-03-02 23:55] VITALS: BP 121/70; PULSE 63; O2SAT 97
[2024-03-03 00:01] LABS: UA COLLECTION TYPE STRAIGHT CATH
[2024-03-03 00:05] LABS: BACTERIA,URINE NONE SEEN /HPF (Neg); COARSE GRANULAR CAST 0-3 /LPF (NEGATIVE); RBC,URINE 0-2 /HPF (0-2); SQUAMOUS EPITHELIAL CELL,UR FEW /LPF (FEW); TRANSITIONAL EPI CELLS,URINE FEW /HPF; WBC,URINE 0-4 /HPF (0-4)
[2024-03-04] MEDS ORDERED: EMPA10TA PO (18:18)
[2024-03-04] MEDS ORDERED: ZAR2.5T PO (18:18)
[2024-03-04] MEDS ORDERED: FLO0.4C PO (18:18)
[2024-03-04] MEDS ORDERED: CARV3.12 PO (18:18)
[2024-03-04] MEDS ORDERED: LOSA50TA64 PO (18:18)
[2024-03-04] MEDS ORDERED: RIVA15TA PO (18:20)
[2024-03-05] MEDS ORDERED: POTA-205 PO (13:31)
== END 2024-03-03 01:25 | disposition home or self-care (01) ==
LOC: ER 18:17
DX: T50.905A Adverse effect of unspecified drugs, medicaments and biological substances, initial encounter (principal); N17.9 Acute kidney failure, unspecified; R33.9 Retention of urine, unspecified; I11.0 Hypertensive heart disease with heart failure; I50.9 Heart failure, unspecified; E11.9 Type 2 diabetes mellitus without complications
CPT/HCPCS: 36415; 80048; 81001; 85025; 93005; 96360; 96361; 99284; J7030; 81003; C1758

== ENCOUNTER 2024-04-28 06:50 | Emergency (ER) | payer MEDICARE ==
[~2024-04-28] VITALS: Ht 152.4 cm; Wt 8.0 kg
[~2024-04-28 06:50] MED LIST changes: -CARV-49 PO; +CARV3.12 PO; -CLON0.2T PO; +FLO0.4C PO; -FURO40TA4 PO; -INSU100I31 SQ; -IRON150C5 PO; -LOSA100T58 PO; -OMEG-15 PO; -POTA-218 PO; -PRED5TAB PO; -TRAZ-251 PO
[2024-04-28] MEDS: oxymetazoline 15 ML nasal spray NS ONE (07:37)
[2024-04-28] MEDS: LIDOcaine 4% (40 mg/ml) topical solution 50ml TP ONE (07:37)
[2024-04-28 08:15] LABS: BASOPHILS % (AUTO) 0.5 % (0-1); EOSINOPHILS # (AUTO) 0.4 X10'3 (0-0.9); EOSINOPHILS % (AUTO) 4.4 % (0-6); HEMATOCRIT 35.1 % (42.0-52.0); HEMOGLOBIN 11.3 g/dl (14.0-17.9); LYMPHOCYTES # (AUTO) 1.8 X10'3 (1.1-4.8); LYMPHOCYTES % (AUTO) 21.5 % (21-51); MEAN CORPUSCULAR HEMOGLOBIN 28.1 PG (27.0-31.0); MEAN CORPUSCULAR HGB CONC 32.3 g/dL (33.0-36.5); MEAN PLATELET VOLUME 10.1 FL (7.4-10.4); MONOCYTES # (AUTO) 0.6 X10'3 (0-0.9); MONOCYTES % (AUTO) 7.4 % (2-12); NEUTROPHILS # (AUTO) 5.4 X10'3 (1.8-7.7); NEUTROPHILS % (AUTO) 66.2 % (42-75); PLATELET COUNT 127 X10'3 (140-440); RED BLOOD COUNT 4.03 X10'6 (4.70-6.10); RED CELL DISTRIBUTION WIDTH 18.9 % (11.5-14.5); WHITE BLOOD COUNT 8.2 X10'3 (4.5-11.0)
[2024-04-28 08:18] LABS: ALBUMIN 2.4 G/DL (3.4-5.0); ANION GAP 6 (8-16); BLOOD UREA NITROGEN 33 MG/DL (7-18); BUN/CREATININE RATIO 18.4 (10.0-20.0); CALCIUM 8.6 MG/DL (8.5-10.1); CHLORIDE 104 MMOL/L (99-107); CREATININE 1.79 MG/DL (0.60-1.10); GLUCOSE 102 MG/DL (70-104); POTASSIUM 4.6 MMOL/L (3.5-5.1); SODIUM 137 MMOL/L (135-145); TOTAL CARBON DIOXIDE 27.1 MMOL/L (24-32); eCRCL 3 ML/MIN; eGFR 36 ML/MIN
[2024-04-28 08:19] LABS: INR 1.4 INR; PROTHROMBIN TIME 14.1 SECONDS (9.0-12.0)
[2024-04-28] MEDS: cloNIDine 0.1 mg tablet PO ONE (08:21)
[2024-04-28 08:33] LABS: ANISOCYTOSIS 2+; ELLIPTOCYTES FEW; PLATELET ESTIMATE DECREASED; TEAR DROP CELLS FEW
[2024-04-28 08:34] LABS: ACANTHOCYTES FEW
[2024-04-28] MEDS: acetaminophen 325mg tablet PO ONE (08:48)
[2024-04-28 11:45] VITALS: BP 155/85; PULSE 78; RESP 16; O2SAT 96
[2024-04-28 13:06] VITALS: TEMP 98
== END 2024-04-28 13:10 | disposition home or self-care (01) ==
LOC: ER 06:51
DX: R04.0 Epistaxis (principal); I11.0 Hypertensive heart disease with heart failure; I50.9 Heart failure, unspecified; E11.9 Type 2 diabetes mellitus without complications; Z79.899 Other long term (current) drug therapy
CPT/HCPCS: 30901; 36415; 80048; 85008; 85025; 85610; 99285

== ENCOUNTER 2024-05-13 14:54 | Inpatient (IN) | payer MEDICARE ==
[~2024-05-13] VITALS: Ht 185.4 cm; Wt 89.9 kg
[2024-05-13 15:31] LABS: HEMOGLOBIN 10.8 g/dl (14.0-17.9); LYMPHOCYTES # (AUTO) 1.3 X10'3 (1.1-4.8); MONOCYTES # (AUTO) 0.7 X10'3 (0-0.9); NEUTROPHILS # (AUTO) 6.6 X10'3 (1.8-7.7); NEUTROPHILS % (AUTO) 73.8 % (42-75)
[2024-05-13 15:33] LABS: BASOPHILS % (AUTO) 0.4 % (0-1); EOSINOPHILS # (AUTO) 0.3 X10'3 (0-0.9); EOSINOPHILS % (AUTO) 2.9 % (0-6); HEMATOCRIT 33.4 % (42.0-52.0); LYMPHOCYTES % (AUTO) 14.9 % (21-51); MEAN CORPUSCULAR HEMOGLOBIN 27.9 PG (27.0-31.0); MEAN CORPUSCULAR HGB CONC 32.5 g/dL (33.0-36.5); MEAN CORPUSCULAR VOLUME 85.7 FL (78-98); MEAN PLATELET VOLUME 9.4 FL (7.4-10.4); PLATELET COUNT 188 X10'3 (140-440); RED BLOOD COUNT 3.89 X10'6 (4.70-6.10); RED CELL DISTRIBUTION WIDTH 17.3 % (11.5-14.5)
[2024-05-13 15:43] LABS: ALBUMIN 2.4 G/DL (3.4-5.0); ANION GAP 6 (8-16); BLOOD UREA NITROGEN 56 MG/DL (7-18); BUN/CREATININE RATIO 23.4 (10.0-20.0); CHLORIDE 101 MMOL/L (99-107); CREATININE 2.39 MG/DL (0.60-1.10); GLUCOSE 146 MG/DL (70-104); POTASSIUM 5.3 MMOL/L (3.5-5.1); SODIUM 133 MMOL/L (135-145); TOTAL CARBON DIOXIDE 25.6 MMOL/L (24-32); eCRCL 19 ML/MIN; eGFR 26 ML/MIN
[2024-05-13 16:34] LABS: PRO BRAIN NATRIURETIC PEPTIDE 8219 PG/ML (0-450)
[2024-05-13] MEDS: furosemide 10 MG/1 ML 10ml inj IV ONE (18:55)
[2024-05-13] MEDS: ondansetron/PF 4mg/2ml inj IV ONE (18:56)
[2024-05-13] MEDS: morphine 4 MG/ML inj SYRINge IV ONE (18:56)
[2024-05-13] MEDS ORDERED: magnesium sulf-water 4G/100mL 100 ML IV PRN (19:00)
[2024-05-13] MEDS ORDERED: ondansetron/PF 4mg/2ml inj IV PRN (19:00)
[2024-05-13] MEDS ORDERED: bisacodyl 10mg suppository rectal RC PRN (19:00)
[2024-05-13] MEDS: CefTRIAXone 2gm/D5W 50ml BAG 50 ML IV ONE (19:00)
[2024-05-13] MEDS ORDERED: potassium Cl 40MEQ/1/2NS 520ml 520 ML IV PRN (19:00)
[2024-05-13] MEDS ORDERED: acetaminophen 325mg tablet PO PRN (19:00)
[2024-05-13] MEDS ORDERED: magnesium sulf-water 2g/50mL 50 ML IV PRN (19:00)
[2024-05-13] MEDS ORDERED: potassium Cl 20 mEq SR tablet PO PRN ×2 (19:00)
[2024-05-13] MEDS ORDERED: mag hydrox/Alum hydrox/simeth 30ml oral suspension PO PRN (19:00)
[2024-05-13] MEDS ORDERED: dextrose 50%-water 50ml dispensing syringe IV PRN ×2 (19:10)
[2024-05-13] MEDS ORDERED: glucagon, human recombinant 1mg kit SUBCUT PRN (19:10)
[2024-05-13] MEDS ORDERED: DEXTROSE 15 GM of carb/4 tabs (each vial/BOTTLE has 4 tablets) PO PRN ×2 (19:10)
[2024-05-13] MEDS: normal saline 1000ml 1,000 ML IV SCH (19:57)
[2024-05-13] MEDS: K and/or MAG REPLACEMENT MC SCH (20:00)
[2024-05-13] MEDS: docusate sod 100mg capsule PO SCH (20:13)
[2024-05-13] MEDS: heparin, porcine 5000 units/ml vial SQ SCH (20:14)
[2024-05-13] MEDS ORDERED: LISI40TA13 PO (20:25)
[2024-05-13] MEDS ORDERED: AMLO-139 PO (20:25)
[2024-05-13] MEDS ORDERED: INSU100I61 (20:25)
[2024-05-13] MEDS ORDERED: BUME1TAB8 PO (20:25)
[2024-05-13] MEDS ORDERED: INSU100I31 (20:25)
[2024-05-13] MEDS ORDERED: POTA-208 PO (20:25)
[2024-05-13] MEDS ORDERED: SPIR25TA5 PO (20:25)
[2024-05-13] MEDS ORDERED: HYDR25TA90 PO (20:25)
[2024-05-13 22:00] VITALS: RESP 20; O2SAT 95
[2024-05-13 23:28] VITALS: RESP 18
[2024-05-13] MEDS: INSULIN LISPRO 100 UNIT/ML INSULN.PEN MULTI-DOSE SQ SCH (23:42)
[2024-05-14 02:00] VITALS: BP 107/52; PULSE 62; RESP 20; TEMP 97.4; O2SAT 95
[2024-05-14 06:00] VITALS: BP 107/50; PULSE 68; RESP 14; TEMP 98.2; O2SAT 94
[2024-05-14 07:26] LABS: BASOPHILS % (AUTO) 0.4 % (0-1); EOSINOPHILS # (AUTO) 0.3 X10'3 (0-0.9); EOSINOPHILS % (AUTO) 4.8 % (0-6); HEMATOCRIT 28.8 % (42.0-52.0); HEMOGLOBIN 9.5 g/dl (14.0-17.9); LYMPHOCYTES # (AUTO) 1.7 X10'3 (1.1-4.8); LYMPHOCYTES % (AUTO) 23.9 % (21-51); MEAN CORPUSCULAR HEMOGLOBIN 28.5 PG (27.0-31.0); MEAN CORPUSCULAR VOLUME 86.2 FL (78-98); MEAN PLATELET VOLUME 9.8 FL (7.4-10.4); MONOCYTES # (AUTO) 0.7 X10'3 (0-0.9); MONOCYTES % (AUTO) 9.3 % (2-12); NEUTROPHILS # (AUTO) 4.3 X10'3 (1.8-7.7); NEUTROPHILS % (AUTO) 61.6 % (42-75); PLATELET COUNT 165 X10'3 (140-440); RED BLOOD COUNT 3.34 X10'6 (4.70-6.10); RED CELL DISTRIBUTION WIDTH 16.8 % (11.5-14.5)
[2024-05-14 07:49] LABS: ALANINE AMINOTRANSFERASE 26 U/L (12-78); ALBUMIN/GLOBULIN RATIO 0.5 (1.1-1.5); ALKALINE PHOSPHATASE 74 IU/L (46-116); ANION GAP 5 (8-16); ASPARTATE AMINO TRANSFERASE 28 U/L (10-37); BILIRUBIN,TOTAL 0.3 MG/DL (0.1-1.0); BLOOD UREA NITROGEN 61 MG/DL (7-18); BUN/CREATININE RATIO 24.7 (10.0-20.0); CALCIUM 8.7 MG/DL (8.5-10.1); CHLORIDE 104 MMOL/L (99-107); CREATININE 2.47 MG/DL (0.60-1.10); GLUCOSE 92 MG/DL (70-104); MAGNESIUM 2.3 MG/DL (1.5-2.4); POTASSIUM 5.6 MMOL/L (3.5-5.1); SODIUM 135 MMOL/L (135-145); TOTAL CARBON DIOXIDE 25.9 MMOL/L (24-32); TOTAL PROTEIN 6.1 G/DL (6.4-8.2); eCRCL 22 ML/MIN; eGFR 25 ML/MIN
[2024-05-14] MEDS: azithromycin/NS 500mg/250ml 250 ML IV SCH (08:26)
[2024-05-14 11:00] VITALS: BP 101/49; PULSE 56; RESP 17; TEMP 97.6; O2SAT 96
[2024-05-14] MEDS: CALCIUM GLUC 1gm/50ml NACL,iso 50 ML IV ONE (11:11)
[2024-05-14] MEDS: HYDROcodone/acetaminophen 5mg/325mg tablet PO PRN (11:55)
[2024-05-14 12:07] LABS: URIC ACID 7.2 MG/DL (3.5-7.2)
[2024-05-14 15:00] VITALS: BP 110/53; PULSE 58; RESP 16; TEMP 98; O2SAT 97
[2024-05-14] MEDS: HYDROcodone/acetaminophen 10/325mg tab PO PRN (16:54)
[2024-05-14 19:00] VITALS: BP 110/47; PULSE 69; RESP 18; TEMP 97.5; O2SAT 95
[2024-05-14] MEDS: furosemide 20 MG/2 ML vial IV SCH (20:38)
[2024-05-14 22:00] VITALS: BP 115/57; PULSE 62; RESP 18; TEMP 97.8; O2SAT 99
[2024-05-15] VITALS (8 sets, daily range): BP systolic 102–127; BP diastolic 50–65; PULSE 62–79; RESP 15–20; TEMP 96.9–98.6; O2SAT 94–96
[2024-05-15 07:20] LABS: BASOPHILS % (AUTO) 0.1 % (0-1); EOSINOPHILS # (AUTO) 0.3 X10'3 (0-0.9); EOSINOPHILS % (AUTO) 4.3 % (0-6); HEMATOCRIT 32.6 % (42.0-52.0); HEMOGLOBIN 10.2 g/dl (14.0-17.9); LYMPHOCYTES # (AUTO) 1.9 X10'3 (1.1-4.8); LYMPHOCYTES % (AUTO) 24.3 % (21-51); MEAN CORPUSCULAR HEMOGLOBIN 27.3 PG (27.0-31.0); MEAN CORPUSCULAR HGB CONC 31.2 g/dL (33.0-36.5); MEAN CORPUSCULAR VOLUME 87.5 FL (78-98); MEAN PLATELET VOLUME 9.5 FL (7.4-10.4); MONOCYTES # (AUTO) 0.7 X10'3 (0-0.9); MONOCYTES % (AUTO) 9.2 % (2-12); NEUTROPHILS % (AUTO) 62.1 % (42-75); PLATELET COUNT 170 X10'3 (140-440); RED BLOOD COUNT 3.72 X10'6 (4.70-6.10); RED CELL DISTRIBUTION WIDTH 17.3 % (11.5-14.5)
[2024-05-15 07:41] LABS: ALANINE AMINOTRANSFERASE 30 U/L (12-78); ALBUMIN 2.1 G/DL (3.4-5.0); ALBUMIN/GLOBULIN RATIO 0.5 (1.1-1.5); ALKALINE PHOSPHATASE 86 IU/L (46-116); ANION GAP 8 (8-16); ASPARTATE AMINO TRANSFERASE 31 U/L (10-37); BILIRUBIN,TOTAL 0.2 MG/DL (0.1-1.0); BLOOD UREA NITROGEN 70 MG/DL (7-18); CALCIUM 8.5 MG/DL (8.5-10.1); CHLORIDE 103 MMOL/L (99-107); CREATININE 2.69 MG/DL (0.60-1.10); GLUCOSE 106 MG/DL (70-104); MAGNESIUM 2.2 MG/DL (1.5-2.4); POTASSIUM 5.6 MMOL/L (3.5-5.1); SODIUM 136 MMOL/L (135-145); TOTAL CARBON DIOXIDE 25.4 MMOL/L (24-32); TOTAL PROTEIN 6.6 G/DL (6.4-8.2); eCRCL 23 ML/MIN; eGFR 23 ML/MIN
[2024-05-15 10:10] LABS: BILIRUBIN,URINE NEGATIVE (Neg); CLARITY,URINE CLEAR (Clear); COLOR,URINE YELLOW (Yellow); GLUCOSE, URINE NEGATIVE (Neg); KETONES,URINE NEGATIVE (Neg); LEUKOCYTE ESTERASE ,URINE NEGATIVE (Neg); NITRITES, URINE NEGATIVE (Neg); OCCULT BLOOD,URINE NEGATIVE (Neg); PH,URINE 5.5 (4.8-8.0); PROTEIN,URINE 100 mg/dl (Neg); UROBILINOGEN,URINE 0.2 E.U/dL (0.2-1.0)
[2024-05-15 10:11] LABS: UA COLLECTION TYPE VOIDED
[2024-05-15 10:26] LABS: BACTERIA,URINE NONE SEEN /HPF (Neg); FINE GRANULAR CAST 0-3 /LPF (NEGATIVE); MUCUS STRANDS NONE SEEN /LPF (Neg); RBC,URINE NONE SEEN /HPF (0-2); SQUAMOUS EPITHELIAL CELL,UR NONE SEEN /LPF (FEW); WBC,URINE 0-4 /HPF (0-4)
[2024-05-15] MEDS: SODIUM ZIRCONIUM CYCLOSILICATE 10 GM POWD.PACK PO SCH (13:01)
[2024-05-15] MEDS: colchicine 0.6mg tablet PO ONE (16:00)
[2024-05-16] VITALS (8 sets, daily range): BP systolic 101–135; BP diastolic 47–62; PULSE 58–81; RESP 14–20; TEMP 97.1–98.5; O2SAT 94–98
[2024-05-16] MEDS: furosemide 20 MG/2 ML vial IV SCH (08:13)
[2024-05-16 08:15] LABS: BASOPHILS % (AUTO) 0.5 % (0-1); EOSINOPHILS # (AUTO) 0.2 X10'3 (0-0.9); EOSINOPHILS % (AUTO) 3.2 % (0-6); HEMATOCRIT 30.3 % (42.0-52.0); HEMOGLOBIN 9.7 g/dl (14.0-17.9); LYMPHOCYTES # (AUTO) 1.5 X10'3 (1.1-4.8); LYMPHOCYTES % (AUTO) 20.7 % (21-51); MEAN CORPUSCULAR HEMOGLOBIN 27.9 PG (27.0-31.0); MEAN CORPUSCULAR HGB CONC 31.9 g/dL (33.0-36.5); MEAN CORPUSCULAR VOLUME 87.4 FL (78-98); MEAN PLATELET VOLUME 9.2 FL (7.4-10.4); MONOCYTES # (AUTO) 0.6 X10'3 (0-0.9); MONOCYTES % (AUTO) 8.9 % (2-12); NEUTROPHILS # (AUTO) 4.7 X10'3 (1.8-7.7); NEUTROPHILS % (AUTO) 66.7 % (42-75); PLATELET COUNT 168 X10'3 (140-440); RED BLOOD COUNT 3.46 X10'6 (4.70-6.10); RED CELL DISTRIBUTION WIDTH 17.4 % (11.5-14.5); WHITE BLOOD COUNT 7.1 X10'3 (4.5-11.0)
[2024-05-16 08:34] LABS: ALANINE AMINOTRANSFERASE 30 U/L (12-78); ALBUMIN/GLOBULIN RATIO 0.5 (1.1-1.5); ALKALINE PHOSPHATASE 81 IU/L (46-116); ANION GAP 5 (8-16); ASPARTATE AMINO TRANSFERASE 29 U/L (10-37); BILIRUBIN,TOTAL 0.3 MG/DL (0.1-1.0); BLOOD UREA NITROGEN 62 MG/DL (7-18); BUN/CREATININE RATIO 24.2 (10.0-20.0); CALCIUM 8.6 MG/DL (8.5-10.1); CHLORIDE 102 MMOL/L (99-107); CREATININE 2.56 MG/DL (0.60-1.10); GLUCOSE 87 MG/DL (70-104); MAGNESIUM 2.1 MG/DL (1.5-2.4); POTASSIUM 4.9 MMOL/L (3.5-5.1); SODIUM 133 MMOL/L (135-145); TOTAL CARBON DIOXIDE 26.4 MMOL/L (24-32); TOTAL PROTEIN 6.2 G/DL (6.4-8.2); eCRCL 24 ML/MIN; eGFR 24 ML/MIN
[2024-05-16] MEDS: predniSONE 20 mg tablet PO SCH (10:27)
[2024-05-17] VITALS (7 sets, daily range): BP systolic 105–126; BP diastolic 53–60; PULSE 59–66; RESP 10–19; TEMP 97.2–98.4; O2SAT 92–99
[2024-05-17 06:36] LABS: BASOPHILS % (AUTO) 0.6 % (0-1); EOSINOPHILS # (AUTO) 0.4 X10'3 (0-0.9); EOSINOPHILS % (AUTO) 7.9 % (0-6); HEMATOCRIT 32.6 % (42.0-52.0); HEMOGLOBIN 10.4 g/dl (14.0-17.9); LYMPHOCYTES # (AUTO) 1.3 X10'3 (1.1-4.8); LYMPHOCYTES % (AUTO) 23.7 % (21-51); MEAN CORPUSCULAR HEMOGLOBIN 27.7 PG (27.0-31.0); MEAN CORPUSCULAR VOLUME 86.5 FL (78-98); MEAN PLATELET VOLUME 9.1 FL (7.4-10.4); MONOCYTES # (AUTO) 0.5 X10'3 (0-0.9); MONOCYTES % (AUTO) 9.1 % (2-12); NEUTROPHILS # (AUTO) 3.3 X10'3 (1.8-7.7); NEUTROPHILS % (AUTO) 58.7 % (42-75); PLATELET COUNT 185 X10'3 (140-440); RED BLOOD COUNT 3.76 X10'6 (4.70-6.10); RED CELL DISTRIBUTION WIDTH 16.4 % (11.5-14.5); WHITE BLOOD COUNT 5.6 X10'3 (4.5-11.0)
[2024-05-17 07:04] LABS: ALANINE AMINOTRANSFERASE 25 U/L (12-78); ALBUMIN 1.9 G/DL (3.4-5.0); ALBUMIN/GLOBULIN RATIO 0.4 (1.1-1.5); ALKALINE PHOSPHATASE 89 IU/L (46-116); ANION GAP 7 (8-16); ASPARTATE AMINO TRANSFERASE 26 U/L (10-37); BILIRUBIN,TOTAL 0.3 MG/DL (0.1-1.0); BLOOD UREA NITROGEN 61 MG/DL (7-18); CALCIUM 8.9 MG/DL (8.5-10.1); CHLORIDE 105 MMOL/L (99-107); CREATININE 2.18 MG/DL (0.60-1.10); GLUCOSE 91 MG/DL (70-104); MAGNESIUM 2.4 MG/DL (1.5-2.4); POTASSIUM 4.4 MMOL/L (3.5-5.1); SODIUM 137 MMOL/L (135-145); TOTAL CARBON DIOXIDE 25.1 MMOL/L (24-32); TOTAL PROTEIN 6.2 G/DL (6.4-8.2); eCRCL 29 ML/MIN; eGFR 29 ML/MIN
[2024-05-17] MEDS: atorvastatin 20mg tablet PO SCH (08:14)
[2024-05-17] MEDS: levoTHYROXINE 25mcg tablet PO SCH (08:14)
[2024-05-17] MEDS: carVEDilol 3.125mg tablet PO SCH (08:15)
[2024-05-17] MEDS: amiodarone 200mg tablet PO SCH (08:15)
[2024-05-17] MEDS: multivitamins, therapeutics tablet PO SCH (08:17)
[2024-05-17] MEDS ORDERED: ondansetron 4mg rapidly disintigrating tab PO PRN (16:10)
[2024-05-17] MEDS: rivaroxaban 15mg tablet PO SCH (17:46)
[2024-05-18 02:00] VITALS: BP 129/68; PULSE 60; RESP 24; TEMP 97.2; O2SAT 98
[2024-05-18 06:00] VITALS: BP 114/61; PULSE 57; RESP 10; TEMP 97.8; O2SAT 98
[2024-05-18 06:24] LABS: BASOPHILS % (AUTO) 0.3 % (0-1); EOSINOPHILS # (AUTO) 0.2 X10'3 (0-0.9); EOSINOPHILS % (AUTO) 2.1 % (0-6); HEMATOCRIT 32.3 % (42.0-52.0); HEMOGLOBIN 10.5 g/dl (14.0-17.9); LYMPHOCYTES # (AUTO) 1.6 X10'3 (1.1-4.8); LYMPHOCYTES % (AUTO) 21.4 % (21-51); MEAN CORPUSCULAR HGB CONC 32.6 g/dL (33.0-36.5); MEAN PLATELET VOLUME 9.4 FL (7.4-10.4); MONOCYTES # (AUTO) 0.6 X10'3 (0-0.9); MONOCYTES % (AUTO) 8.7 % (2-12); NEUTROPHILS % (AUTO) 67.5 % (42-75); PLATELET COUNT 213 X10'3 (140-440); RED BLOOD COUNT 3.76 X10'6 (4.70-6.10); RED CELL DISTRIBUTION WIDTH 16.6 % (11.5-14.5); WHITE BLOOD COUNT 7.5 X10'3 (4.5-11.0)
[2024-05-18 06:40] LABS: ALANINE AMINOTRANSFERASE 34 U/L (12-78); ALBUMIN 2.1 G/DL (3.4-5.0); ALBUMIN/GLOBULIN RATIO 0.5 (1.1-1.5); ALKALINE PHOSPHATASE 110 IU/L (46-116); ANION GAP 7 (8-16); ASPARTATE AMINO TRANSFERASE 32 U/L (10-37); BILIRUBIN,TOTAL 0.3 MG/DL (0.1-1.0); BLOOD UREA NITROGEN 61 MG/DL (7-18); BUN/CREATININE RATIO 24.9 (10.0-20.0); CALCIUM 8.6 MG/DL (8.5-10.1); CHLORIDE 101 MMOL/L (99-107); CREATININE 2.45 MG/DL (0.60-1.10); GLUCOSE 110 MG/DL (70-104); MAGNESIUM 2.2 MG/DL (1.5-2.4); SODIUM 135 MMOL/L (135-145); TOTAL CARBON DIOXIDE 27.2 MMOL/L (24-32); TOTAL PROTEIN 6.5 G/DL (6.4-8.2); eCRCL 25 ML/MIN; eGFR 25 ML/MIN
[2024-05-18 08:00] VITALS: RESP 10; O2SAT 98
[2024-05-18 11:00] VITALS: BP 108/57; PULSE 60; RESP 15; TEMP 97.7; O2SAT 96
[2024-05-18] MEDS ORDERED: APIX2.5T PO (11:30)
[2024-05-18] MEDS ORDERED: FLO0.4C PO (11:30)
[2024-05-18] MEDS ORDERED: AMIO200T36 PO (11:30)
[2024-05-18] MEDS ORDERED: ATOR20TA66 PO (11:30)
[2024-05-18] MEDS ORDERED: CARV3.12 PO (11:30)
[2024-05-18] MEDS ORDERED: SODI10PO PO (11:30)
[2024-05-18] MEDS ORDERED: LEVO25TA7 PO (11:30)
[2024-05-18] MEDS ORDERED: FURO20TA4 PO (11:30)
[2024-05-18] MEDS ORDERED: PRED10TA23 PO (11:30)
[2024-05-18 15:00] VITALS: BP 128/56; PULSE 65; RESP 18; TEMP 97.1; O2SAT 96
== END 2024-05-18 16:08 | disposition home health service (06) | DRG 682 ==
LOC: ER 14:54 → MERGE 14:54 → ED HOLD 18:58 → OBSVTOIN 19:06 → EDBEDREQ 20:08 → PCU 3S 21:45 → INTOOBSV 05-14 08:40 → OBSVTOIN 05-14 08:40
PROVIDERS: ADMIT Family Medicine; ATTEND Family Medicine
DX: N17.9 Acute kidney failure, unspecified (principal); I50.43 Acute on chronic combined systolic (congestive) and diastolic (congestive) heart failure; J96.00 Acute respiratory failure, unspecified whether with hypoxia or hypercapnia; I13.0 Hypertensive heart and chronic kidney disease with heart failure and stage 1 through stage 4 chronic kidney disease, or unspecified chronic kidney disease; I48.20 Chronic atrial fibrillation, unspecified; E11.22 Type 2 diabetes mellitus with diabetic chronic kidney disease; E03.9 Hypothyroidism, unspecified; M17.12 Unilateral primary osteoarthritis, left knee; Z20.822 Contact with and (suspected) exposure to COVID-19; T38.0X5A Adverse effect of glucocorticoids and synthetic analogues, initial encounter; E87.5 Hyperkalemia; N18.4 Chronic kidney disease, stage 4 (severe); G47.33 Obstructive sleep apnea (adult) (pediatric); Z68.26 Body mass index [BMI] 26.0-26.9, adult; F41.9 Anxiety disorder, unspecified; I25.10 Atherosclerotic heart disease of native coronary artery without angina pectoris; M10.9 Gout, unspecified; Z90.49 Acquired absence of other specified parts of digestive tract; Z82.49 Family history of ischemic heart disease and other diseases of the circulatory system; Y92.89 Other specified places as the place of occurrence of the external cause; Z79.01 Long term (current) use of anticoagulants; Z79.84 Long term (current) use of oral hypoglycemic drugs; Z80.42 Family history of malignant neoplasm of prostate
CPT/HCPCS: 36415; 71045; 73562; 76770; 80048; 80053; 81001; 82570; 82948; 83735; 83880; 84145; 84156; 84300; 84550; 85025; 87081; 87811; 93005; 96365; 96375; 97110; 97161; 97530; 99285; A4349; A4615; A6213; A6590; G0378; J0456; J0610; J0696; J1644; J1815; J1940; J2270; J2405; J7030; J7512

== ENCOUNTER 2024-05-30 11:57 | Inpatient (IN) | payer MEDICARE ==
[~2024-05-30] VITALS: Ht 170.2 cm; Wt 101.1 kg
[~2024-05-30 11:57] MED LIST changes: +APIX2.5T PO; +FURO20TA4 PO; +INSU100I31; +INSU100I61; +PRED10TA23 PO; -RIVA15TA PO; +SODI10PO PO
[2024-05-30] MEDS ORDERED: SPIR25TA5 PO (13:51)
[2024-05-30] MEDS ORDERED: CEPH-585 PO (13:52)
[2024-05-30] MEDS: ondansetron/PF 4mg/2ml inj IV ONE (14:38)
[2024-05-30] MEDS: HYDROcodone/acetaminophen 10/325mg tab PO ONE (14:38)
[2024-05-30 15:08] LABS: BASOPHILS % (AUTO) 0.2 % (0-1); EOSINOPHILS # (AUTO) 0.1 X10'3 (0-0.9); EOSINOPHILS % (AUTO) 0.8 % (0-6); HEMATOCRIT 32.9 % (42.0-52.0); HEMOGLOBIN 10.5 g/dl (14.0-17.9); LYMPHOCYTES # (AUTO) 1.6 X10'3 (1.1-4.8); LYMPHOCYTES % (AUTO) 9.4 % (21-51); MEAN CORPUSCULAR HEMOGLOBIN 27.4 PG (27.0-31.0); MEAN CORPUSCULAR VOLUME 85.8 FL (78-98); MEAN PLATELET VOLUME 10.2 FL (7.4-10.4); MONOCYTES # (AUTO) 1.1 X10'3 (0-0.9); MONOCYTES % (AUTO) 6.4 % (2-12); NEUTROPHILS # (AUTO) 13.7 X10'3 (1.8-7.7); NEUTROPHILS % (AUTO) 83.2 % (42-75); PLATELET COUNT 185 X10'3 (140-440); RED BLOOD COUNT 3.83 X10'6 (4.70-6.10); RED CELL DISTRIBUTION WIDTH 16.8 % (11.5-14.5); WHITE BLOOD COUNT 16.5 X10'3 (4.5-11.0)
[2024-05-30 15:27] LABS: ALBUMIN 2.1 G/DL (3.4-5.0); ANION GAP 7 (8-16); BLOOD UREA NITROGEN 52 MG/DL (7-18); BUN/CREATININE RATIO 28.3 (10.0-20.0); CALCIUM 8.2 MG/DL (8.5-10.1); CHLORIDE 99 MMOL/L (99-107); CREATININE 1.84 MG/DL (0.60-1.10); GLUCOSE 137 MG/DL (70-104); POTASSIUM 3.3 MMOL/L (3.5-5.1); PRO BRAIN NATRIURETIC PEPTIDE 10070 PG/ML (0-450); SODIUM 131 MMOL/L (135-145); TOTAL CARBON DIOXIDE 25.5 MMOL/L (24-32); eCRCL 28 ML/MIN; eGFR 35 ML/MIN
[2024-05-30] MEDS: piperacillin/tazo 3.375gm/50ml 50 ML IV ONE (15:30)
[2024-05-30] MEDS: furosemide 10 MG/1 ML 10ml inj IV ONE (15:31)
[2024-05-30] MEDS ORDERED: dextrose 50%-water 50ml dispensing syringe IV PRN ×2 (17:15)
[2024-05-30] MEDS: PERFLUTREN PROTEIN-A MICROSPHR (Optison) 0.22 MG/ML 3ML VIAL IV ONE (17:15)
[2024-05-30] MEDS ORDERED: glucagon, human recombinant 1mg kit SUBCUT PRN (17:15)
[2024-05-30] MEDS ORDERED: mag hydrox/Alum hydrox/simeth 30ml oral suspension PO PRN (17:15)
[2024-05-30] MEDS ORDERED: potassium Cl 20 mEq SR tablet PO PRN ×2 (17:15)
[2024-05-30] MEDS ORDERED: bisacodyl 10mg suppository rectal RC PRN (17:15)
[2024-05-30] MEDS ORDERED: ipratropium/albuterol 3ml nebule NEB PRN (17:15)
[2024-05-30] MEDS ORDERED: ondansetron/PF 4mg/2ml inj IV PRN (17:15)
[2024-05-30] MEDS ORDERED: magnesium sulf-water 4G/100mL 100 ML IV PRN (17:15)
[2024-05-30] MEDS ORDERED: DEXTROSE 15 GM of carb/4 tabs (each vial/BOTTLE has 4 tablets) PO PRN ×2 (17:15)
[2024-05-30] MEDS ORDERED: potassium Cl 40MEQ/1/2NS 520ml 520 ML IV PRN (17:15)
[2024-05-30] MEDS ORDERED: magnesium sulf-water 2g/50mL 50 ML IV PRN (17:15)
[2024-05-30 17:37] LABS: BILIRUBIN,URINE NEGATIVE (Neg); CLARITY,URINE CLEAR (Clear); COLOR,URINE YELLOW (Yellow); GLUCOSE, URINE NEGATIVE (Neg); KETONES,URINE NEGATIVE (Neg); LEUKOCYTE ESTERASE ,URINE NEGATIVE (Neg); NITRITES, URINE NEGATIVE (Neg); OCCULT BLOOD,URINE NEGATIVE (Neg); PH,URINE 5.5 (4.8-8.0); PROTEIN,URINE 100 mg/dl (Neg); UROBILINOGEN,URINE 0.2 E.U/dL (0.2-1.0)
[2024-05-30 17:40] LABS: UA COLLECTION TYPE CLN CATCH MIDSTREAM
[2024-05-30 17:44] LABS: BACTERIA,URINE FEW /HPF (Neg); RBC,URINE NONE SEEN /HPF (0-2); SQUAMOUS EPITHELIAL CELL,UR FEW /LPF (FEW); WBC,URINE 0-4 /HPF (0-4)
[2024-05-30] MEDS: K and/or MAG REPLACEMENT MC SCH (20:00)
[2024-05-30 21:00] VITALS: BP 123/47; PULSE 61; RESP 27; TEMP 96.2; O2SAT 96
[2024-05-30] MEDS: furosemide 10 MG/1 ML 10ml inj IV SCH (22:56)
[2024-05-30] MEDS: docusate sod 100mg capsule PO SCH (22:57)
[2024-05-30] MEDS: apixaban 2.5mg tablet PO SCH (22:57)
[2024-05-30] MEDS: acetaminophen 325mg tablet PO PRN (22:57)
[2024-05-30] MEDS: carVEDilol 3.125mg tablet PO SCH (22:58)
[2024-05-30] MEDS: piperacillin/tazo 3.375gm/50ml 50 ML IV SCH (23:55)
[2024-05-30 23:56] VITALS: PULSE 52; RESP 14; O2SAT 94
[2024-05-31] VITALS (7 sets, daily range): BP systolic 117–161; BP diastolic 52–65; PULSE 51–79; RESP 16–23; TEMP 96.5–98; O2SAT 91–98
[2024-05-31] MEDS: insulin glargine (Lantus) pen - multi-dose SQ SCH (00:01)
[2024-05-31] MEDS: INSULIN LISPRO 100 UNIT/ML INSULN.PEN MULTI-DOSE SQ SCH (00:03)
[2024-05-31] MEDS: HYDROmorphone inj. 0.5 MG/0.5 ML DISP.SYRIN IV ONE (03:12)
[2024-05-31 07:19] LABS: ALANINE AMINOTRANSFERASE 43 U/L (12-78); ALBUMIN 1.8 G/DL (3.4-5.0); ALBUMIN/GLOBULIN RATIO 0.4 (1.1-1.5); ALKALINE PHOSPHATASE 105 IU/L (46-116); ANION GAP 8 (8-16); ASPARTATE AMINO TRANSFERASE 35 U/L (10-37); BILIRUBIN,TOTAL 0.4 MG/DL (0.1-1.0); BLOOD UREA NITROGEN 51 MG/DL (7-18); CALCIUM 8.4 MG/DL (8.5-10.1); CHLORIDE 100 MMOL/L (99-107); CREATININE 1.89 MG/DL (0.60-1.10); GLUCOSE 136 MG/DL (70-104); MAGNESIUM 1.9 MG/DL (1.5-2.4); POTASSIUM 3.8 MMOL/L (3.5-5.1); SODIUM 134 MMOL/L (135-145); eCRCL 27 ML/MIN; eGFR 34 ML/MIN
[2024-05-31] MEDS: levoTHYROXINE 25mcg tablet PO SCH (08:54)
[2024-05-31] MEDS: amiodarone 200mg tablet PO SCH (09:05)
[2024-05-31] MEDS: tamsulosin 0.4mg capsule PO SCH (09:05)
[2024-05-31] MEDS: atorvastatin 20mg tablet PO SCH (09:05)
[2024-05-31] MEDS: HYDROcodone/acetaminophen 5mg/325mg tablet PO PRN (09:13)
[2024-05-31 11:11] LABS: HEMATOCRIT 31.4 % (43.5-53.7); HEMOGLOBIN 10.4 G/DL (12.5-16.3); MEAN CORPUSCULAR VOLUME 84.1 FL (81-97); RED BLOOD COUNT 3.73 X10'6 (4.30-5.90)
[2024-05-31 11:12] LABS: BASOPHILS % 0 % (0-2); EOSINOPHILS # (AUTO) 0.3 X10'3 (0-0.9); EOSINOPHILS % (AUTO) 2 % (0-5); LYMPHOCYTES # (AUTO) 1.3 X10'3 (0.6-4.1); LYMPHOCYTES % 10 % (24-44); MEAN CORPUSCULAR HEMOGLOBIN 27.9 PG (27-31.2); MEAN CORPUSCULAR HGB CONC 33.2 % (32-36); MONOCYTES # (AUTO) 0.8 X10'3 (0-0.9); MONOCYTES % 6 % (0-12); NEUTROPHILS # (AUTO) 10.5 X10'3 (>=1.4); PLATELET COUNT 175 X10'3 (130-400); RED CELL DISTRIBUTION WIDTH 16.3 % (11-16); SEGMENTED NEUTROPHILS % 81 % (36-66)
[2024-06-01] VITALS (9 sets, daily range): BP systolic 118–150; BP diastolic 55–76; PULSE 53–78; RESP 13–22; TEMP 97–98.2; O2SAT 91–99
[2024-06-01 05:33] LABS: BASOPHILS # (AUTO) 0.1 X10'3 (0-0.2); BASOPHILS % (AUTO) 0.6 % (0-1); EOSINOPHILS # (AUTO) 0.5 X10'3 (0-0.9); EOSINOPHILS % (AUTO) 4.5 % (0-6); HEMATOCRIT 29.8 % (42.0-52.0); HEMOGLOBIN 9.6 g/dl (14.0-17.9); LYMPHOCYTES # (AUTO) 1.5 X10'3 (1.1-4.8); LYMPHOCYTES % (AUTO) 14.7 % (21-51); MEAN CORPUSCULAR HEMOGLOBIN 27.1 PG (27.0-31.0); MEAN CORPUSCULAR HGB CONC 32.2 g/dL (33.0-36.5); MEAN CORPUSCULAR VOLUME 84.3 FL (78-98); MONOCYTES # (AUTO) 0.7 X10'3 (0-0.9); MONOCYTES % (AUTO) 6.5 % (2-12); NEUTROPHILS # (AUTO) 7.6 X10'3 (1.8-7.7); NEUTROPHILS % (AUTO) 73.7 % (42-75); PLATELET COUNT 194 X10'3 (140-440); RED BLOOD COUNT 3.54 X10'6 (4.70-6.10); RED CELL DISTRIBUTION WIDTH 16.9 % (11.5-14.5); WHITE BLOOD COUNT 10.4 X10'3 (4.5-11.0)
[2024-06-01 05:55] LABS: ALANINE AMINOTRANSFERASE 40 U/L (12-78); ALBUMIN 1.8 G/DL (3.4-5.0); ALBUMIN/GLOBULIN RATIO 0.4 (1.1-1.5); ALKALINE PHOSPHATASE 120 IU/L (46-116); ANION GAP 7 (8-16); ASPARTATE AMINO TRANSFERASE 28 U/L (10-37); BILIRUBIN,TOTAL 0.3 MG/DL (0.1-1.0); BLOOD UREA NITROGEN 55 MG/DL (7-18); BUN/CREATININE RATIO 27.2 (10.0-20.0); CALCIUM 8.4 MG/DL (8.5-10.1); CHLORIDE 99 MMOL/L (99-107); CREATININE 2.02 MG/DL (0.60-1.10); GLUCOSE 169 MG/DL (70-104); MAGNESIUM 1.8 MG/DL (1.5-2.4); POTASSIUM 4.3 MMOL/L (3.5-5.1); SODIUM 131 MMOL/L (135-145); TOTAL CARBON DIOXIDE 25.3 MMOL/L (24-32); TOTAL PROTEIN 5.9 G/DL (6.4-8.2); eCRCL 25 ML/MIN; eGFR 32 ML/MIN
[2024-06-01] MEDS: INSULIN LISPRO 100 UNIT/ML INSULN.PEN MULTI-DOSE SQ SCH (09:00)
[2024-06-01] MEDS: insulin glargine (Lantus) pen - multi-dose SQ SCH (21:31)
[2024-06-02] VITALS (11 sets, daily range): BP systolic 122–165; BP diastolic 50–82; PULSE 52–64; RESP 12–24; TEMP 97–99; O2SAT 95–99
[2024-06-02 05:43] LABS: ALANINE AMINOTRANSFERASE 40 U/L (12-78); ALBUMIN 1.8 G/DL (3.4-5.0); ALBUMIN/GLOBULIN RATIO 0.4 (1.1-1.5); ALKALINE PHOSPHATASE 130 IU/L (46-116); ANION GAP 6 (8-16); ASPARTATE AMINO TRANSFERASE 33 U/L (10-37); BILIRUBIN,TOTAL 0.3 MG/DL (0.1-1.0); BLOOD UREA NITROGEN 65 MG/DL (7-18); BUN/CREATININE RATIO 31.1 (10.0-20.0); CALCIUM 8.5 MG/DL (8.5-10.1); CHLORIDE 100 MMOL/L (99-107); CREATININE 2.09 MG/DL (0.60-1.10); GLUCOSE 146 MG/DL (70-104); MAGNESIUM 1.7 MG/DL (1.5-2.4); POTASSIUM 4.8 MMOL/L (3.5-5.1); SODIUM 133 MMOL/L (135-145); TOTAL CARBON DIOXIDE 26.7 MMOL/L (24-32); TOTAL PROTEIN 6.1 G/DL (6.4-8.2); eCRCL 25 ML/MIN; eGFR 30 ML/MIN
[2024-06-02 05:57] LABS: BASOPHILS # (AUTO) 0.1 X10'3 (0-0.2); BASOPHILS % (AUTO) 0.6 % (0-1); EOSINOPHILS # (AUTO) 0.6 X10'3 (0-0.9); EOSINOPHILS % (AUTO) 6.3 % (0-6); HEMATOCRIT 30.4 % (42.0-52.0); HEMOGLOBIN 9.9 g/dl (14.0-17.9); LYMPHOCYTES # (AUTO) 1.4 X10'3 (1.1-4.8); LYMPHOCYTES % (AUTO) 15.1 % (21-51); MEAN CORPUSCULAR HEMOGLOBIN 27.5 PG (27.0-31.0); MEAN CORPUSCULAR HGB CONC 32.5 g/dL (33.0-36.5); MEAN CORPUSCULAR VOLUME 84.7 FL (78-98); MEAN PLATELET VOLUME 10.1 FL (7.4-10.4); MONOCYTES # (AUTO) 0.6 X10'3 (0-0.9); MONOCYTES % (AUTO) 6.9 % (2-12); NEUTROPHILS # (AUTO) 6.5 X10'3 (1.8-7.7); NEUTROPHILS % (AUTO) 71.1 % (42-75); PLATELET COUNT 217 X10'3 (140-440); RED BLOOD COUNT 3.58 X10'6 (4.70-6.10); RED CELL DISTRIBUTION WIDTH 16.7 % (11.5-14.5); WHITE BLOOD COUNT 9.1 X10'3 (4.5-11.0)
[2024-06-03 02:00] VITALS: BP 123/57; PULSE 58; RESP 20; TEMP 96.5; O2SAT 98
[2024-06-03 06:00] VITALS: BP 147/71; PULSE 58; RESP 19; TEMP 97.7; O2SAT 98
[2024-06-03 06:19] LABS: BASOPHILS % (AUTO) 0.3 % (0-1); EOSINOPHILS # (AUTO) 0.4 X10'3 (0-0.9); EOSINOPHILS % (AUTO) 4.6 % (0-6); HEMATOCRIT 31.7 % (42.0-52.0); HEMOGLOBIN 10.4 g/dl (14.0-17.9); LYMPHOCYTES # (AUTO) 1.6 X10'3 (1.1-4.8); LYMPHOCYTES % (AUTO) 18.4 % (21-51); MEAN CORPUSCULAR HEMOGLOBIN 27.6 PG (27.0-31.0); MEAN CORPUSCULAR HGB CONC 32.7 g/dL (33.0-36.5); MEAN CORPUSCULAR VOLUME 84.4 FL (78-98); MEAN PLATELET VOLUME 9.6 FL (7.4-10.4); MONOCYTES # (AUTO) 0.6 X10'3 (0-0.9); MONOCYTES % (AUTO) 6.2 % (2-12); NEUTROPHILS # (AUTO) 6.3 X10'3 (1.8-7.7); NEUTROPHILS % (AUTO) 70.5 % (42-75); PLATELET COUNT 239 X10'3 (140-440); RED BLOOD COUNT 3.76 X10'6 (4.70-6.10); RED CELL DISTRIBUTION WIDTH 16.5 % (11.5-14.5); WHITE BLOOD COUNT 8.9 X10'3 (4.5-11.0)
[2024-06-03 06:32] LABS: ALANINE AMINOTRANSFERASE 42 U/L (12-78); ALBUMIN 1.7 G/DL (3.4-5.0); ALBUMIN/GLOBULIN RATIO 0.4 (1.1-1.5); ALKALINE PHOSPHATASE 156 IU/L (46-116); ANION GAP 7 (8-16); ASPARTATE AMINO TRANSFERASE 40 U/L (10-37); BILIRUBIN,TOTAL 0.4 MG/DL (0.1-1.0); BLOOD UREA NITROGEN 62 MG/DL (7-18); BUN/CREATININE RATIO 28.4 (10.0-20.0); CALCIUM 8.7 MG/DL (8.5-10.1); CHLORIDE 98 MMOL/L (99-107); CREATININE 2.18 MG/DL (0.60-1.10); GLUCOSE 116 MG/DL (70-104); MAGNESIUM 1.9 MG/DL (1.5-2.4); POTASSIUM 4.5 MMOL/L (3.5-5.1); SODIUM 133 MMOL/L (135-145); TOTAL CARBON DIOXIDE 27.9 MMOL/L (24-32); TOTAL PROTEIN 6.1 G/DL (6.4-8.2); eCRCL 24 ML/MIN; eGFR 29 ML/MIN
[2024-06-03 11:00] VITALS: BP 129/56; PULSE 62; RESP 18; TEMP 98.1; O2SAT 98
[2024-06-03 12:20] VITALS: BP 129/56; PULSE 62; RESP 18; TEMP 98.1; O2SAT 98
== END 2024-06-03 14:51 | DRG 602 ==
LOC: ER 11:57 → ED HOLD 17:34 → PCU 3S 19:15
PROVIDERS: ADMIT Family Medicine; ATTEND Family Medicine
PROC: 5A09357 Assistance with Respiratory Ventilation, Less than 24 Consecutive Hours, Continuous Positive Airway Pressure (ICD-10-PCS; principal; 2024-06-01)
PROC: 5A09357 Assistance with Respiratory Ventilation, Less than 24 Consecutive Hours, Continuous Positive Airway Pressure (ICD-10-PCS; 2024-06-02)
PROC: 5A09357 Assistance with Respiratory Ventilation, Less than 24 Consecutive Hours, Continuous Positive Airway Pressure (ICD-10-PCS; 2024-06-03)
DX: L03.115 Cellulitis of right lower limb (principal); I50.33 Acute on chronic diastolic (congestive) heart failure; I13.0 Hypertensive heart and chronic kidney disease with heart failure and stage 1 through stage 4 chronic kidney disease, or unspecified chronic kidney disease; N18.4 Chronic kidney disease, stage 4 (severe); N17.9 Acute kidney failure, unspecified; E11.22 Type 2 diabetes mellitus with diabetic chronic kidney disease; E87.6 Hypokalemia; E03.9 Hypothyroidism, unspecified; E11.65 Type 2 diabetes mellitus with hyperglycemia; I48.91 Unspecified atrial fibrillation; G47.33 Obstructive sleep apnea (adult) (pediatric); M10.9 Gout, unspecified; F41.9 Anxiety disorder, unspecified; I25.10 Atherosclerotic heart disease of native coronary artery without angina pectoris; Z80.42 Family history of malignant neoplasm of prostate; Z82.49 Family history of ischemic heart disease and other diseases of the circulatory system; Z68.34 Body mass index [BMI] 34.0-34.9, adult
CPT/HCPCS: 36415; 71045; 80048; 80053; 81001; 82948; 83605; 83735; 83880; 84145; 84484; 85025; 87040; 87081; 93005; 93306; 93970; 94760; 97110; 97116; 97162; 97530; 99285; A6212; A6213; A6258; A6449; A6590; G0378; J1170; J1815; J1940; J2405; J2543; J7030; J7040

== ENCOUNTER 2025-01-14 09:48 | Emergency (ER) | payer MEDICARE, MEDICAID ==
[2025-01-14] VITALS (13 sets, daily range): BP systolic 105–162; BP diastolic 32–72; PULSE 65–85; RESP 10–22; TEMP 97.4–98; O2SAT 96
[~2025-01-14] VITALS: Ht 172.7 cm; Wt 86.4 kg
[~2025-01-14 09:48] MED LIST changes: -ATOR20TA66 PO; +CEPH-585 PO; -FURO20TA4 PO; -PRED10TA23 PO; -SODI10PO PO
[2025-01-14 10:53] LABS: BASOPHILS % (AUTO) 0.5 % (0-1); EOSINOPHILS # (AUTO) 0.1 X10'3 (0-0.9); EOSINOPHILS % (AUTO) 1.8 % (0-6); LYMPHOCYTES # (AUTO) 0.8 X10'3 (1.1-4.8); LYMPHOCYTES % (AUTO) 13.6 % (21-51); MEAN CORPUSCULAR HEMOGLOBIN 25.2 PG (27.0-31.0); MEAN CORPUSCULAR HGB CONC 32.5 g/dL (33.0-36.5); MEAN CORPUSCULAR VOLUME 77.4 FL (78-98); MEAN PLATELET VOLUME 10.6 FL (7.4-10.4); MONOCYTES # (AUTO) 0.5 X10'3 (0-0.9); MONOCYTES % (AUTO) 8.1 % (2-12); NEUTROPHILS # (AUTO) 4.5 X10'3 (1.8-7.7); PLATELET COUNT 173 X10'3 (140-440); RED BLOOD COUNT 2.45 X10'6 (4.70-6.10); RED CELL DISTRIBUTION WIDTH 17.3 % (11.5-14.5); WHITE BLOOD COUNT 5.9 X10'3 (4.5-11.0)
[2025-01-14 10:56] LABS: HEMOGLOBIN 6.2 g/dl (14.0-17.9)
[2025-01-14 11:02] LABS: INR 1.5 INR; PROTHROMBIN TIME 14.9 SECONDS (9.0-12.0)
[2025-01-14 11:07] LABS: ALANINE AMINOTRANSFERASE 84 U/L (12-78); ALBUMIN 2.6 G/DL (3.4-5.0); ALBUMIN/GLOBULIN RATIO 0.7 (1.1-1.5); ALKALINE PHOSPHATASE 121 IU/L (46-116); ANION GAP 7 (8-16); ASPARTATE AMINO TRANSFERASE 91 U/L (10-37); BILIRUBIN,TOTAL 0.3 MG/DL (0.1-1.0); BLOOD UREA NITROGEN 112 MG/DL (7-18); BUN/CREATININE RATIO 48.5 (10.0-20.0); CALCIUM 8.2 MG/DL (8.5-10.1); CHLORIDE 97 MMOL/L (99-107); CREATININE 2.31 MG/DL (0.60-1.10); GLUCOSE 211 MG/DL (70-104); MAGNESIUM 2.4 MG/DL (1.5-2.4); POTASSIUM 5.8 MMOL/L (3.5-5.1); SODIUM 128 MMOL/L (135-145); TOTAL CARBON DIOXIDE 24.3 MMOL/L (24-32); TOTAL PROTEIN 6.6 G/DL (6.4-8.2); eCRCL 23 ML/MIN; eGFR 27 ML/MIN
[2025-01-14 17:37] LABS: BASOPHILS % (AUTO) 0.5 % (0-1); EOSINOPHILS # (AUTO) 0.2 X10'3 (0-0.9); HEMATOCRIT 25.7 % (42.0-52.0); HEMOGLOBIN 8.4 g/dl (14.0-17.9); LYMPHOCYTES # (AUTO) 1.1 X10'3 (1.1-4.8); LYMPHOCYTES % (AUTO) 14.7 % (21-51); MEAN CORPUSCULAR HEMOGLOBIN 25.8 PG (27.0-31.0); MEAN CORPUSCULAR HGB CONC 32.5 g/dL (33.0-36.5); MEAN CORPUSCULAR VOLUME 79.4 FL (78-98); MEAN PLATELET VOLUME 8.3 FL (7.4-10.4); MONOCYTES # (AUTO) 0.8 X10'3 (0-0.9); MONOCYTES % (AUTO) 10.5 % (2-12); NEUTROPHILS # (AUTO) 5.6 X10'3 (1.8-7.7); NEUTROPHILS % (AUTO) 72.3 % (42-75); PLATELET COUNT 130 X10'3 (140-440); RED BLOOD COUNT 3.24 X10'6 (4.70-6.10); RED CELL DISTRIBUTION WIDTH 17.7 % (11.5-14.5); WHITE BLOOD COUNT 7.7 X10'3 (4.5-11.0)
== END 2025-01-14 18:46 | disposition home or self-care (01) ==
LOC: ER 09:49
DX: D64.9 Anemia, unspecified (principal); I13.0 Hypertensive heart and chronic kidney disease with heart failure and stage 1 through stage 4 chronic kidney disease, or unspecified chronic kidney disease; N18.4 Chronic kidney disease, stage 4 (severe); E11.22 Type 2 diabetes mellitus with diabetic chronic kidney disease; I48.91 Unspecified atrial fibrillation; E03.9 Hypothyroidism, unspecified; I50.9 Heart failure, unspecified; G47.30 Sleep apnea, unspecified; Z79.899 Other long term (current) drug therapy; Z79.01 Long term (current) use of anticoagulants; Z95.0 Presence of cardiac pacemaker
CPT/HCPCS: 36415; 36430; 80053; 83735; 85025; 85610; 86885; 86900; 86901; 86920; 93005; 99285; J7030; P9016